=== PATIENT | male | born 1945 | race African-American/Black ===

== ENCOUNTER → 2021-09-24 | Day surgery (SDC) | payer OTHER ==
[2021-09-22 11:18] LABS: Basophils # (auto) 0 10 ^3/uL (0-0.2); Basophils % (auto) 0.3 % (0.0-2.0); Eosinophils # (auto) 0 10 ^3/uL (0-0.8); Eosinophils % (auto) 0.5 % (0.0-7.0); Hematocrit 45.7 % (41.0-53.0); Hemoglobin 15.3 g/dL (13.5-17.5); Lymphocytes # (auto) 3.1 10 ^3/uL (0.4-5.4); Lymphocytes % (auto) 29.6 % (10.0-50.0); Mean Corpuscular Hemoglobin 30.9 pg (28.0-32.0); Mean Corpuscular Hgb Conc. 33.4 g/dL (32.0-36.0); Mean Corpuscular Volume 92.4 fL (80.0-100.0); Monocytes # (auto) 1.2 10 ^3/uL (0-1.3); Monocytes % (auto) 11.6 % (0.0-12.0); Nucleated Red Blood Cells % 0.1 %; Red Blood Cells 4.95 10^6/uL (4.5-5.90); Red Cell Distribution Width 15.6 % (11.8-14.3); White Blood Cell 10.4 10^3/uL (4.4-10.8)
[2021-09-22 11:22] LABS: Potassium 4.1 mmol/L (3.5-5.1)
[2021-09-22 11:28] LABS: BUN/Creatinine Ratio 11.8; Bilirubin, Total 0.5 mg/dL (0.2-1.0); Calcium 9.2 mg/dL (8.5-10.1); Total Protein 7.5 g/dL (6.4-8.2)
[~2021-09-24] VITALS: Ht 175.3 cm; Wt 68.0 kg
[~2021-09-24] MED LIST: LACT10SO70 PO; LIDOCAINE VISCOUS 2% 15ML UD ONE; POLY33504 PO; diphenhdrAMINE HCL 50 MG/1 ML VL ONE; fentaNYL CITRATE 100 MCG/2 ML VL ONE
[2021-09-24] MEDS: MIDAZOLAM HCL 5 MG/ML-1ML VIAL ONE ×2 (15:46→15:52)
[2021-09-24 16:45] VITALS: BP 120/56
== END | disposition home or self-care (01) ==
LOC: GI 12:54
PROVIDERS: ATTEND Internal Medicine Gastroenterology
DX: R10.13 Epigastric pain (principal); K21.00 Gastro-esophageal reflux disease with esophagitis, without bleeding; K29.50 Unspecified chronic gastritis without bleeding; K31.89 Other diseases of stomach and duodenum; K22.10 Ulcer of esophagus without bleeding; K44.9 Diaphragmatic hernia without obstruction or gangrene; K29.80 Duodenitis without bleeding; F17.200 Nicotine dependence, unspecified, uncomplicated; Z20.822 Contact with and (suspected) exposure to COVID-19
CPT/HCPCS: 36415; 43239; 80053; 85025; 88305; 88342; J1200; J2250; J3010; J7030; U0003; 99152

== ENCOUNTER 2022-02-10 13:05 | Inpatient (IN) | payer OTHER ==
[~2022-02-10] VITALS: Ht 175.3 cm; Wt 65.5 kg
[~2022-02-10 13:05] MED LIST changes: +LEVE500T32 PO; -LIDOCAINE VISCOUS 2% 15ML UD ONE; -diphenhdrAMINE HCL 50 MG/1 ML VL ONE; -fentaNYL CITRATE 100 MCG/2 ML VL ONE
[2022-02-10] MEDS ORDERED: LORazepam 2MG/ML-1ML VIAL ONE ×2 (13:20→13:30)
[2022-02-10] MEDS ORDERED: ROCURONIUM 10MG/ML 10ML VIAL IV ONE ×2 (13:26→13:30)
[2022-02-10] MEDS ORDERED: ETOMIDATE (2MG/ML) 20ML VIAL IV ONE ×2 (13:26→13:30)
[2022-02-10] MEDS ORDERED: MIDAZOLAM HCL 2MG/2ML 2ml VIAL (1mg/ml) IV ONE (13:30)
[2022-02-10] MEDS ORDERED: SODIUM CHLORIDE 0.9% 500 ML IV ONE (13:30)
[2022-02-10] MEDS ORDERED: LORazepam 2MG/ML-1ML VIAL IM ONE (13:30)
[2022-02-10] MEDS ORDERED: MIDAZOLAM HCL 5 MG/ML-1ML VIAL ONE (13:30)
[2022-02-10] MEDS ORDERED: MIDAZOLAM DRIP 50 mg/50mL 50 ML IV ONE (13:30)
[2022-02-10] MEDS ORDERED: LORazepam 2MG/ML-1ML VIAL IV ONE (13:30)
[2022-02-10] MEDS ORDERED: PROPOFOL 100 ML IV ONE (13:32)
[2022-02-10] MEDS: PROPOFOL 100 ML IV SCH (13:36)
[2022-02-10 14:20] LABS: Basophils # (auto) 0.1 10 ^3/uL (0-0.2); Eosinophils # (auto) 0 10 ^3/uL (0-0.8); Eosinophils % (auto) 0.1 % (0.0-7.0); Hematocrit 49.7 % (41.0-53.0); Hemoglobin 16.3 g/dL (13.5-17.5); Lymphocytes # (auto) 2.1 10 ^3/uL (0.4-5.4); Lymphocytes % (auto) 15.2 % (10.0-50.0); Mean Corpuscular Hemoglobin 31.8 pg (28.0-32.0); Mean Corpuscular Hgb Conc. 32.7 g/dL (32.0-36.0); Mean Corpuscular Volume 97.2 fL (80.0-100.0); Monocytes # (auto) 1.1 10 ^3/uL (0-1.3); Neutrophils # (auto) 10.3 10 ^3/uL (1.6-8.6); Neutrophils % (auto) 75.7 % (37.0-80.0); Nucleated Red Blood Cells % 0.1 %; Red Blood Cells 5.12 10^6/uL (4.5-5.90); Red Cell Distribution Width 15.6 % (11.8-14.3); White Blood Cell 13.6 10^3/uL (4.4-10.8)
[2022-02-10 15:03] LABS: Lactic Acid w/Reflex 13.7 mmol/L (0.4-2.0)
[2022-02-10] MEDS ORDERED: SODIUM CHLORIDE 0.9% 2,050 ML IV ONE (15:15)
[2022-02-10] MEDS: NOREPINEPHRINE 8 MG/250ML KIT 250 ML IV SCH (15:15)
[2022-02-10] MEDS ORDERED: NITROGLYCERIN 0.4 MG SL TAB SL PRN (15:15)
[2022-02-10] MEDS ORDERED: MORPHINE SULFATE INJ 2 MG/ml SYRG IV PRN (15:15)
[2022-02-10] MEDS ORDERED: VANCOMYCIN PER PHARMACY 1,000 MG IV SCH (15:15)
[2022-02-10 15:27] LABS: Urine Bacteria NONE SEEN /hpf (None Seen); Urine Blood 1+ /uL (Negative); Urine Hyaline Cast FEW /lpf (0 - 2); Urine Specific Gravity 1.015 (1.001-1.035); Urine WBC 4 /hpf (0 - 3)
[2022-02-10 15:29] LABS: Alanine Aminotransferase 18 U/L (16-61); Alkaline Phosphatase 62 U/L (45-117); Anion Gap 25 (5-15); Aspartate Aminotransferase 29 U/L (15-37); BUN/Creatinine Ratio 10.3; Bilirubin, Total 0.5 mg/dL (0.2-1.0); Blood Urea Nitrogen 12 mg/dL (7-18); Carbon Dioxide 11 mmol/L (21-32); Chloride 100 mmol/L (98-107); GFR African American 78 mL/min; GFR Non-African American 65 mL/min; Glucose 210 mg/dL (74-106); Potassium 3.6 mmol/L (3.5-5.1); Sodium 136 mmol/L (136-145); Total Protein 7.8 g/dL (6.4-8.2)
[2022-02-10 15:30] LABS: Albumin 3.7 g/dL (3.4-5.0)
[2022-02-10] MEDS ORDERED: VANCOMYCIN 1GM/250ML 250 ML IV ONE (15:30)
[2022-02-10 15:38] LABS: Alcohol, Urine < 3.0 mg/dL (0-10); Amphetamine Screen, Urine NEGATIVE (NEGATIVE); Barbiturate Scree,Urine NEGATIVE (NEGATIVE); Benzodiazephine Screen, Urine POSITIVE (NEGATIVE); Cannabinoid Screen, Urine POSITIVE (NEGATIVE); Cocaine Screen, Urine NEGATIVE (NEGATIVE); Phencyclidine Screen, Urine NEGATIVE (NEGATIVE)
[2022-02-10 15:45] VITALS: BP 117/84
[2022-02-10 15:45] LABS: Opiate Scree,Urine NEGATIVE (NEGATIVE)
[2022-02-10 16:25] LABS: Partial Thromboplastin Time 24.6 sec (23.6-33.0)
[2022-02-10] MEDS: MIDAZOLAM DRIP 50 mg/50mL 50 ML IV SCH (16:32)
[2022-02-10] MEDS ORDERED: LACTULOSE 20Gm/30ML SOLN PO SCH (18:00)
[2022-02-10] MEDS ORDERED: PANTOPRAZOLE 40 MG/10 ML VIAL INJ IV ONE (18:00)
[2022-02-10 18:06] VITALS: BP 117/78
[2022-02-10] MEDS: PIPERACILLIN-TAZOB 3.375GM 100 ML IV SCH (18:29)
[2022-02-10] MEDS ORDERED: IOHEXOL 350 MG/ML 100ML IJ ONE ×2 (18:33→21:41)
[2022-02-10 19:24] LABS: Magnesium 2.8 mg/dL (1.6-2.6); Phosphorus 2.8 mg/dL (2.5-4.90)
[2022-02-10 19:50] VITALS: BP 109/74
[2022-02-10 19:59] LABS: INR 0.97 (0.9-1.15); Partial Thromboplastin Time 21.9 sec (23.6-33.0)
[2022-02-10 21:17] VITALS: BP 105/73
[2022-02-10 22:15] VITALS: BP 97/71
[2022-02-11] VITALS (81 sets, daily range): BP systolic 85–168; BP diastolic 30–99
[2022-02-11] MEDS: PIPERACILLIN-TAZOB 3.375GM 100 ML IV SCH ×4 (01:00→18:43)
[2022-02-11] MEDS: LACTULOSE 20Gm/30ML SOLN GT SCH ×7 (02:00→22:07)
[2022-02-11] MEDS: MIDAZOLAM DRIP 50 mg/50mL 50 ML IV SCH ×5 (07:26→22:42)
[2022-02-11] MEDS: VANCOMYCIN 1GM/250ML 250 ML IV SCH (09:58)
[2022-02-11] MEDS: PANTOPRAZOLE 40 MG/10 ML VIAL INJ IV SCH (09:58)
[2022-02-11] MEDS ORDERED: ENOXAPARIN SOD 40 MG/0.4 ML SYRINGE SC SCH (10:00)
[2022-02-11 10:18] LABS: Basophils # (auto) 0.1 10 ^3/uL (0-0.2); Basophils % (auto) 0.5 % (0.0-2.0); Eosinophils # (auto) 0 10 ^3/uL (0-0.8); Eosinophils % (auto) 0.2 % (0.0-7.0); Hemoglobin 14.4 g/dL (13.5-17.5); Lymphocytes # (auto) 1.6 10 ^3/uL (0.4-5.4); Lymphocytes % (auto) 12.7 % (10.0-50.0); Mean Corpuscular Hemoglobin 31.7 pg (28.0-32.0); Mean Corpuscular Hgb Conc. 33.5 g/dL (32.0-36.0); Mean Corpuscular Volume 94.5 fL (80.0-100.0); Monocytes # (auto) 1.4 10 ^3/uL (0-1.3); Monocytes % (auto) 11.3 % (0.0-12.0); Neutrophils # (auto) 9.3 10 ^3/uL (1.6-8.6); Neutrophils % (auto) 75.3 % (37.0-80.0); Nucleated Red Blood Cells % 0.1 %; Red Blood Cells 4.55 10^6/uL (4.5-5.90); Red Cell Distribution Width 15.3 % (11.8-14.3); White Blood Cell 12.3 10^3/uL (4.4-10.8)
[2022-02-11 10:35] LABS: INR 1.04 (0.9-1.15); Partial Thromboplastin Time 28.3 sec (23.6-33.0)
[2022-02-11 10:37] LABS: Albumin 2.9 g/dL (3.4-5.0); Calcium 8.4 mg/dL (8.5-10.1); Magnesium 2.7 mg/dL (1.6-2.6); Potassium 3.1 mmol/L (3.5-5.1); Uric Acid 3.8 mg/dL (3.5-7.2)
[2022-02-11 10:47] LABS: BUN/Creatinine Ratio 8.4; Bilirubin, Total 0.7 mg/dL (0.2-1.0); CRP High Sensitivity 4.39 mg/dL (< 0.3); Phosphorus 2.8 mg/dL (2.5-4.90)
[2022-02-11] MEDS ORDERED: ENOXAPARIN SOD 30 MG/0.3 ML SYRINGE SC ONE (12:45)
[2022-02-11] MEDS: SOD CHL 0.9%/ KCL 40MEQ 1,000 ML IV SCH ×2 (13:01→21:15)
[2022-02-11] MEDS: PROPOFOL 100 ML IV SCH ×3 (13:30→22:42)
[2022-02-11 13:36] LABS: Lactic Acid w/Reflex 2.2 mmol/L (0.4-2.0)
[2022-02-11] MEDS: NOREPINEPHRINE 8 MG/250ML KIT 250 ML IV SCH (15:15)
[2022-02-11] MEDS ORDERED: LORazepam 2MG/ML-1ML VIAL IV PRN (19:15)
[2022-02-11] MEDS ORDERED: ENOXAPARIN SOD 100 MG/1 ML SYRINGE SC SCH (22:00)
[2022-02-11] MEDS: ENOXAPARIN SOD 80 MG/0.8ML SYRINGE SC SCH (22:08)
[2022-02-12] VITALS (106 sets, daily range): BP systolic 93–150; BP diastolic 41–77
[2022-02-12] MEDS: PIPERACILLIN-TAZOB 3.375GM 100 ML IV SCH ×5 (00:02→23:32)
[2022-02-12] MEDS: LACTULOSE 20Gm/30ML SOLN GT SCH ×3 (01:37→09:57)
[2022-02-12] MEDS: MIDAZOLAM DRIP 50 mg/50mL 50 ML IV SCH ×6 (01:53→23:07)
[2022-02-12] MEDS: VANCOMYCIN 1GM/250ML 250 ML IV SCH ×2 (03:59→22:24)
[2022-02-12 04:16] LABS: Basophils # (auto) 0.2 10 ^3/uL (0-0.2); Eosinophils # (auto) 0 10 ^3/uL (0-0.8); Eosinophils % (auto) 0.1 % (0.0-7.0); Hematocrit 41.3 % (41.0-53.0); Lymphocytes # (auto) 1.9 10 ^3/uL (0.4-5.4); Lymphocytes % (auto) 11.7 % (10.0-50.0); Mean Corpuscular Hemoglobin 31.6 pg (28.0-32.0); Mean Corpuscular Hgb Conc. 33.8 g/dL (32.0-36.0); Mean Corpuscular Volume 93.5 fL (80.0-100.0); Monocytes # (auto) 1.7 10 ^3/uL (0-1.3); Monocytes % (auto) 10.2 % (0.0-12.0); Neutrophils # (auto) 12.6 10 ^3/uL (1.6-8.6); Red Blood Cells 4.42 10^6/uL (4.5-5.90); Red Cell Distribution Width 15.5 % (11.8-14.3); White Blood Cell 16.4 10^3/uL (4.4-10.8)
[2022-02-12 04:37] LABS: Potassium 3.8 mmol/L (3.5-5.1)
[2022-02-12 04:39] LABS: BUN/Creatinine Ratio 7.3; Calcium 8.7 mg/dL (8.5-10.1)
[2022-02-12] MEDS: PROPOFOL 100 ML IV SCH ×4 (05:00→21:15)
[2022-02-12] MEDS: SOD CHL 0.9%/ KCL 40MEQ 1,000 ML IV SCH (06:09)
[2022-02-12] MEDS: PANTOPRAZOLE 40 MG/10 ML VIAL INJ IV SCH (09:48)
[2022-02-12] MEDS: ENOXAPARIN SOD 80 MG/0.8ML SYRINGE SC SCH ×2 (09:50→22:24)
[2022-02-12] MEDS: FOLIC ACID 1 MG, MULTIPLE VITAMIN 10 ML, MAGNESIUM SULF SDV 50% 8 MEQ, THIAMINE INJ 100... INJ SCH ×5 (11:45)
[2022-02-12] MEDS: NOREPINEPHRINE 8 MG/250ML KIT 250 ML IV SCH (15:15)
[2022-02-13] VITALS (91 sets, daily range): BP systolic 108–158; BP diastolic 55–89
[2022-02-13] MEDS: MIDAZOLAM DRIP 50 mg/50mL 50 ML IV SCH (03:18)
[2022-02-13 04:32] LABS: Basophils # (auto) 0 10 ^3/uL (0-0.2); Basophils % (auto) 0.3 % (0.0-2.0); Eosinophils # (auto) 0.1 10 ^3/uL (0-0.8); Eosinophils % (auto) 0.6 % (0.0-7.0); Hematocrit 38.8 % (41.0-53.0); Hemoglobin 13.4 g/dL (13.5-17.5); Lymphocytes # (auto) 1.8 10 ^3/uL (0.4-5.4); Lymphocytes % (auto) 13.4 % (10.0-50.0); Mean Corpuscular Hgb Conc. 34.5 g/dL (32.0-36.0); Mean Corpuscular Volume 92.5 fL (80.0-100.0); Monocytes # (auto) 1.4 10 ^3/uL (0-1.3); Monocytes % (auto) 10.6 % (0.0-12.0); Neutrophils % (auto) 75.1 % (37.0-80.0); Red Blood Cells 4.19 10^6/uL (4.5-5.90); Red Cell Distribution Width 15.3 % (11.8-14.3); White Blood Cell 13.3 10^3/uL (4.4-10.8)
[2022-02-13] MEDS: PIPERACILLIN-TAZOB 3.375GM 100 ML IV SCH ×3 (05:26→18:00)
[2022-02-13] MEDS: PANTOPRAZOLE 40 MG/10 ML VIAL INJ IV SCH (10:12)
[2022-02-13] MEDS: ENOXAPARIN SOD 80 MG/0.8ML SYRINGE SC SCH ×2 (10:13→21:53)
[2022-02-13 10:26] LABS: BUN/Creatinine Ratio 10.8; Calcium 8.2 mg/dL (8.5-10.1); Potassium 3.3 mmol/L (3.5-5.1)
[2022-02-13] MEDS: FOLIC ACID 1 MG, MULTIPLE VITAMIN 10 ML, MAGNESIUM SULF SDV 50% 8 MEQ, THIAMINE INJ 100... INJ SCH ×5 (10:57)
[2022-02-13] MEDS: NOREPINEPHRINE 8 MG/250ML KIT 250 ML IV SCH (12:40)
[2022-02-13] MEDS ORDERED: hydrALAZINE HCL 20 MG/ML VL IV PRN (13:00)
[2022-02-13 14:05] LABS: INR 0.99 (0.9-1.15); Partial Thromboplastin Time 45.3 sec (23.6-33.0)
[2022-02-13] MEDS: PROPOFOL 100 ML IV SCH (20:30)
[2022-02-14] VITALS (102 sets, daily range): BP systolic 81–174; BP diastolic 30–78
[2022-02-14] MEDS: PIPERACILLIN-TAZOB 3.375GM 100 ML IV SCH ×5 (00:25→23:49)
[2022-02-14] MEDS: PROPOFOL 100 ML IV SCH (03:41)
[2022-02-14 04:03] LABS: Basophils # (auto) 0.1 10 ^3/uL (0-0.2); Basophils % (auto) 0.5 % (0.0-2.0); Eosinophils # (auto) 0 10 ^3/uL (0-0.8); Eosinophils % (auto) 0.3 % (0.0-7.0); Hemoglobin 13.9 g/dL (13.5-17.5); Lymphocytes % (auto) 16.3 % (10.0-50.0); Mean Corpuscular Hemoglobin 31.3 pg (28.0-32.0); Mean Corpuscular Volume 94.8 fL (80.0-100.0); Monocytes # (auto) 1.9 10 ^3/uL (0-1.3); Monocytes % (auto) 15.4 % (0.0-12.0); Neutrophils # (auto) 8.2 10 ^3/uL (1.6-8.6); Neutrophils % (auto) 67.5 % (37.0-80.0); Red Blood Cells 4.43 10^6/uL (4.5-5.90); Red Cell Distribution Width 15.5 % (11.8-14.3); White Blood Cell 12.1 10^3/uL (4.4-10.8)
[2022-02-14 04:36] LABS: BUN/Creatinine Ratio 12.2; Calcium 8.5 mg/dL (8.5-10.1); Potassium 3.5 mmol/L (3.5-5.1)
[2022-02-14] MEDS: MIDAZOLAM DRIP 50 mg/50mL 50 ML IV SCH (09:29)
[2022-02-14] MEDS: ENOXAPARIN SOD 80 MG/0.8ML SYRINGE SC SCH ×2 (09:29→22:28)
[2022-02-14] MEDS: PANTOPRAZOLE 40 MG/10 ML VIAL INJ IV SCH (09:29)
[2022-02-14] MEDS: NOREPINEPHRINE 8 MG/250ML KIT 250 ML IV SCH (09:30)
[2022-02-14] MEDS: FOLIC ACID 1 MG, MULTIPLE VITAMIN 10 ML, MAGNESIUM SULF SDV 50% 8 MEQ, THIAMINE INJ 100... INJ SCH ×5 (11:46)
[2022-02-14] MEDS ORDERED: MAGN400T40 PO (13:23)
[2022-02-14] MEDS ORDERED: PANT40TA2 PO (13:23)
[2022-02-14] MEDS ORDERED: DexmedeTOMIDine 4 ML IV ONE (20:45)
[2022-02-15] VITALS (69 sets, daily range): BP systolic 86–175; BP diastolic 43–116
[2022-02-15 04:21] LABS: Basophils # (auto) 0.1 10 ^3/uL (0-0.2); Basophils % (auto) 1.4 % (0.0-2.0); Eosinophils # (auto) 0 10 ^3/uL (0-0.8); Eosinophils % (auto) 0.4 % (0.0-7.0); Hematocrit 38.2 % (41.0-53.0); Hemoglobin 13.2 g/dL (13.5-17.5); Lymphocytes # (auto) 1.9 10 ^3/uL (0.4-5.4); Lymphocytes % (auto) 21.4 % (10.0-50.0); Mean Corpuscular Hemoglobin 32.2 pg (28.0-32.0); Mean Corpuscular Hgb Conc. 34.7 g/dL (32.0-36.0); Mean Corpuscular Volume 92.8 fL (80.0-100.0); Monocytes % (auto) 11.7 % (0.0-12.0); Neutrophils # (auto) 5.8 10 ^3/uL (1.6-8.6); Neutrophils % (auto) 65.1 % (37.0-80.0); Nucleated Red Blood Cells % 0.1 %; Red Blood Cells 4.11 10^6/uL (4.5-5.90); Red Cell Distribution Width 15.5 % (11.8-14.3); White Blood Cell 8.9 10^3/uL (4.4-10.8)
[2022-02-15 04:29] LABS: Potassium 3.2 mmol/L (3.5-5.1)
[2022-02-15 04:34] LABS: BUN/Creatinine Ratio 15.8; Calcium 8.8 mg/dL (8.5-10.1); Magnesium 2.4 mg/dL (1.6-2.6)
[2022-02-15] MEDS: PIPERACILLIN-TAZOB 3.375GM 100 ML IV SCH ×4 (05:42→23:39)
[2022-02-15] MEDS: PANTOPRAZOLE 40 MG/10 ML VIAL INJ IV SCH (09:39)
[2022-02-15] MEDS: ENOXAPARIN SOD 80 MG/0.8ML SYRINGE SC SCH ×2 (09:40→21:32)
[2022-02-15] MEDS: FOLIC ACID 1 MG, MULTIPLE VITAMIN 10 ML, MAGNESIUM SULF SDV 50% 8 MEQ, THIAMINE INJ 100... INJ SCH ×5 (11:36)
[2022-02-15] MEDS: MIDAZOLAM DRIP 50 mg/50mL 50 ML IV SCH (12:58)
[2022-02-15] MEDS: PROPOFOL 100 ML IV SCH (12:58)
[2022-02-15] MEDS: POTASSIUM CHL 20MEQ/100ML 100 ML IV SCH ×2 (12:58→14:46)
[2022-02-15] MEDS: NOREPINEPHRINE 8 MG/250ML KIT 250 ML IV SCH (12:59)
[2022-02-15] MEDS: ACETAMINOPHEN 650 mg PER 20.3 mL UD GT PRN ×2 (15:04→21:32)
[2022-02-16] VITALS (35 sets, daily range): BP systolic 108–173; BP diastolic 52–83
[2022-02-16] MEDS: MORPHINE SULFATE 4 MG/ML SYR/VIAL IV PRN ×5 (03:25→22:06)
[2022-02-16 03:51] LABS: Basophils # (auto) 0 10 ^3/uL (0-0.2); Basophils % (auto) 0.4 % (0.0-2.0); Eosinophils # (auto) 0.1 10 ^3/uL (0-0.8); Eosinophils % (auto) 0.7 % (0.0-7.0); Hematocrit 34.5 % (41.0-53.0); Hemoglobin 11.6 g/dL (13.5-17.5); Lymphocytes # (auto) 2.3 10 ^3/uL (0.4-5.4); Lymphocytes % (auto) 25.8 % (10.0-50.0); Mean Corpuscular Hemoglobin 31.4 pg (28.0-32.0); Mean Corpuscular Hgb Conc. 33.6 g/dL (32.0-36.0); Mean Corpuscular Volume 93.6 fL (80.0-100.0); Monocytes # (auto) 1.4 10 ^3/uL (0-1.3); Monocytes % (auto) 15.4 % (0.0-12.0); Neutrophils # (auto) 5.1 10 ^3/uL (1.6-8.6); Neutrophils % (auto) 57.7 % (37.0-80.0); Nucleated Red Blood Cells % 0.2 %; Red Blood Cells 3.69 10^6/uL (4.5-5.90); Red Cell Distribution Width 15.6 % (11.8-14.3); White Blood Cell 8.8 10^3/uL (4.4-10.8)
[2022-02-16 04:01] LABS: BUN/Creatinine Ratio 15.1; Calcium 8.7 mg/dL (8.5-10.1); Magnesium 2.4 mg/dL (1.6-2.6); Potassium 3.3 mmol/L (3.5-5.1)
[2022-02-16] MEDS: PIPERACILLIN-TAZOB 3.375GM 100 ML IV SCH ×3 (06:00→18:02)
[2022-02-16] MEDS: ACETAMINOPHEN 650 mg PER 20.3 mL UD GT PRN (09:27)
[2022-02-16] MEDS: PANTOPRAZOLE 40 MG/10 ML VIAL INJ IV SCH (09:34)
[2022-02-16] MEDS: ENOXAPARIN SOD 80 MG/0.8ML SYRINGE SC SCH ×2 (10:00→22:05)
[2022-02-16] MEDS: POTASSIUM CHL 20MEQ/100ML 100 ML IV SCH ×2 (11:30→13:30)
[2022-02-16] MEDS: FOLIC ACID 1 MG, MULTIPLE VITAMIN 10 ML, MAGNESIUM SULF SDV 50% 8 MEQ, THIAMINE INJ 100... INJ SCH ×5 (12:08)
[2022-02-16] MEDS ORDERED: ONDANSETRON HCL 4 MG/2 ML VIAL IV PRN (12:45)
[2022-02-16] MEDS: MIDAZOLAM DRIP 50 mg/50mL 50 ML IV SCH (13:30)
[2022-02-16] MEDS: PROPOFOL 100 ML IV SCH (13:30)
[2022-02-16] MEDS: NOREPINEPHRINE 8 MG/250ML KIT 250 ML IV SCH (15:15)
[2022-02-17] VITALS (23 sets, daily range): BP systolic 96–156; BP diastolic 47–86
[2022-02-17] MEDS: PIPERACILLIN-TAZOB 3.375GM 100 ML IV SCH ×4 (00:29→19:05)
[2022-02-17 04:23] LABS: Basophils # (auto) 0 10 ^3/uL (0-0.2); Basophils % (auto) 0.5 % (0.0-2.0); Eosinophils # (auto) 0.1 10 ^3/uL (0-0.8); Eosinophils % (auto) 0.8 % (0.0-7.0); Hematocrit 34.8 % (41.0-53.0); Hemoglobin 11.6 g/dL (13.5-17.5); Lymphocytes # (auto) 1.9 10 ^3/uL (0.4-5.4); Lymphocytes % (auto) 20.1 % (10.0-50.0); Mean Corpuscular Hemoglobin 31.4 pg (28.0-32.0); Mean Corpuscular Hgb Conc. 33.4 g/dL (32.0-36.0); Monocytes # (auto) 1.2 10 ^3/uL (0-1.3); Monocytes % (auto) 13.3 % (0.0-12.0); Neutrophils # (auto) 6.1 10 ^3/uL (1.6-8.6); Neutrophils % (auto) 65.3 % (37.0-80.0); Red Cell Distribution Width 15.3 % (11.8-14.3); White Blood Cell 9.3 10^3/uL (4.4-10.8)
[2022-02-17 04:39] LABS: Calcium 8.9 mg/dL (8.5-10.1); Potassium 3.4 mmol/L (3.5-5.1)
[2022-02-17] MEDS: PANTOPRAZOLE 40 MG/10 ML VIAL INJ IV SCH (10:10)
[2022-02-17] MEDS: ENOXAPARIN SOD 80 MG/0.8ML SYRINGE SC SCH ×2 (10:10→22:00)
[2022-02-17] MEDS ORDERED: POLYETHYLENE GLYCOL 17 GM PWDR PO ONE (10:15)
[2022-02-17] MEDS ORDERED: POTASSIUM CHL 20MEQ/100ML 100 ML IV ONE (11:00)
[2022-02-17] MEDS: FOLIC ACID 1 MG, MULTIPLE VITAMIN 10 ML, MAGNESIUM SULF SDV 50% 8 MEQ, THIAMINE INJ 100... INJ SCH ×5 (13:01)
[2022-02-17] MEDS: MIDAZOLAM DRIP 50 mg/50mL 50 ML IV SCH (13:30)
[2022-02-17] MEDS: PROPOFOL 100 ML IV SCH (13:30)
[2022-02-17] MEDS: NOREPINEPHRINE 8 MG/250ML KIT 250 ML IV SCH (15:15)
[2022-02-17] MEDS: LORazepam 2MG/ML-1ML VIAL IV PRN (22:41)
[2022-02-18] VITALS: BP 129/65
[2022-02-18 01:00] VITALS: BP 133/61
[2022-02-18] MEDS: PIPERACILLIN-TAZOB 3.375GM 100 ML IV SCH ×4 (01:00→17:56)
[2022-02-18] MEDS ORDERED: dilTIAZem 25 MG/5 ML VIAL IV ONE (06:00)
[2022-02-18 06:37] LABS: Anion Gap 7 (5-15); BUN/Creatinine Ratio 9.5; Blood Urea Nitrogen 6 mg/dL (7-18); Calcium 8.4 mg/dL (8.5-10.1); Carbon Dioxide 24 mmol/L (21-32); Chloride 109 mmol/L (98-107); GFR African American 160 mL/min; GFR Non-African American 132 mL/min; Glucose 101 mg/dL (74-106); Potassium 3.2 mmol/L (3.5-5.1); Sodium 140 mmol/L (136-145)
[2022-02-18 07:42] LABS: Basophils # (auto) 0.1 10 ^3/uL (0-0.2); Basophils % (auto) 0.6 % (0.0-2.0); Eosinophils # (auto) 0.1 10 ^3/uL (0-0.8); Eosinophils % (auto) 0.6 % (0.0-7.0); Hematocrit 35.8 % (41.0-53.0); Hemoglobin 12.1 g/dL (13.5-17.5); Lymphocytes # (auto) 1.8 10 ^3/uL (0.4-5.4); Lymphocytes % (auto) 19.8 % (10.0-50.0); Mean Corpuscular Hgb Conc. 33.8 g/dL (32.0-36.0); Mean Corpuscular Volume 91.6 fL (80.0-100.0); Monocytes # (auto) 1.1 10 ^3/uL (0-1.3); Monocytes % (auto) 12.7 % (0.0-12.0); Neutrophils % (auto) 66.3 % (37.0-80.0); Nucleated Red Blood Cells % 0.1 %; Red Blood Cells 3.91 10^6/uL (4.5-5.90); Red Cell Distribution Width 15.2 % (11.8-14.3)
[2022-02-18 09:00] VITALS: BP 146/81
[2022-02-18] MEDS: ENOXAPARIN SOD 80 MG/0.8ML SYRINGE SC SCH ×2 (09:48→10:48)
[2022-02-18] MEDS: PANTOPRAZOLE 40 MG/10 ML VIAL INJ IV SCH (09:50)
[2022-02-18] MEDS: POTASSIUM CHL 20MEQ/100ML 100 ML IV SCH ×2 (10:58→14:16)
[2022-02-18] MEDS: FOLIC ACID 1 MG, MULTIPLE VITAMIN 10 ML, MAGNESIUM SULF SDV 50% 8 MEQ, THIAMINE INJ 100... INJ SCH ×5 (12:00)
[2022-02-18 13:00] VITALS: BP 97/61
[2022-02-18 17:00] VITALS: BP 78/49
[2022-02-18] MEDS: LORazepam 2MG/ML-1ML VIAL IV PRN (21:59)
[2022-02-18 22:00] VITALS: BP 147/68
[2022-02-19 05:00] VITALS: BP 125/56
[2022-02-19 05:55] LABS: Basophils # (auto) 0.1 10 ^3/uL (0-0.2); Basophils % (auto) 0.7 % (0.0-2.0); Eosinophils # (auto) 0.1 10 ^3/uL (0-0.8); Eosinophils % (auto) 1.6 % (0.0-7.0); Hematocrit 37.9 % (41.0-53.0); Hemoglobin 12.5 g/dL (13.5-17.5); Lymphocytes # (auto) 2.5 10 ^3/uL (0.4-5.4); Lymphocytes % (auto) 29.3 % (10.0-50.0); Mean Corpuscular Hemoglobin 30.9 pg (28.0-32.0); Mean Corpuscular Hgb Conc. 32.9 g/dL (32.0-36.0); Monocytes # (auto) 1.2 10 ^3/uL (0-1.3); Monocytes % (auto) 14.1 % (0.0-12.0); Neutrophils # (auto) 4.7 10 ^3/uL (1.6-8.6); Neutrophils % (auto) 54.3 % (37.0-80.0); Red Blood Cells 4.03 10^6/uL (4.5-5.90); Red Cell Distribution Width 15.2 % (11.8-14.3); White Blood Cell 8.7 10^3/uL (4.4-10.8)
[2022-02-19 06:12] LABS: Calcium 8.8 mg/dL (8.5-10.1); Potassium 3.3 mmol/L (3.5-5.1)
[2022-02-19] MEDS: PIPERACILLIN-TAZOB 3.375GM 100 ML IV SCH ×4 (06:31→16:51)
[2022-02-19 08:44] VITALS: BP 140/79
[2022-02-19] MEDS: ENOXAPARIN SOD 80 MG/0.8ML SYRINGE SC SCH (09:05)
[2022-02-19] MEDS: PANTOPRAZOLE 40 MG/10 ML VIAL INJ IV SCH (09:05)
[2022-02-19] MEDS ORDERED: APIX5TAB PO (10:47)
[2022-02-19] MEDS ORDERED: POTASSIUM EFFERVESENT TAB 25 MEQ GT ONE (11:00)
[2022-02-19] MEDS: FOLIC ACID 1 MG, MULTIPLE VITAMIN 10 ML, MAGNESIUM SULF SDV 50% 8 MEQ, THIAMINE INJ 100... INJ SCH ×5 (12:00)
[2022-02-19 12:57] VITALS: BP 97/66
[2022-02-19] MEDS ORDERED: ALBU1AER4 IN (15:27)
[2022-02-19 15:57] VITALS: BP 97/66
[2022-02-19 16:49] VITALS: BP 131/67
[2022-02-19] MEDS ORDERED: PANTOPRAZOLE 40 MG/10 ML VIAL INJ IV SCH (22:00)
== END 2022-02-19 19:09 | disposition home health service (06) | DRG 870 ==
LOC: ER 13:05 → EDBD 13:05 → TELE 15:13 → ICU WEST 02-11 05:25 → TELE-WESTW 02-18 02:12
PROVIDERS: ADMIT Hospitalist; ATTEND Internal Medicine Pulmonary Disease
PROC: 0BH17EZ Insertion of Endotracheal Airway into Trachea, Via Natural or Artificial Opening (ICD-10-PCS; 2022-02-10)
PROC: 5A1955Z Respiratory Ventilation, Greater than 96 Consecutive Hours (ICD-10-PCS; 2022-02-10)
PROC: 05H933Z Insertion of Infusion Device into Right Brachial Vein, Percutaneous Approach (ICD-10-PCS; principal; 2022-02-11)
PROC: B54MZZA Ultrasonography of Right Upper Extremity Veins, Guidance (ICD-10-PCS; 2022-02-11)
DX: A41.9 Sepsis, unspecified organism (principal); G93.41 Metabolic encephalopathy; J69.0 Pneumonitis due to inhalation of food and vomit; J96.01 Acute respiratory failure with hypoxia; I26.93 Single subsegmental thrombotic pulmonary embolism without acute cor pulmonale; E43 Unspecified severe protein-calorie malnutrition; E87.2 Acidosis; I50.30 Unspecified diastolic (congestive) heart failure; N17.9 Acute kidney failure, unspecified; F10.239 Alcohol dependence with withdrawal, unspecified; R65.20 Severe sepsis without septic shock; B96.1 Klebsiella pneumoniae [K. pneumoniae] as the cause of diseases classified elsewhere; F17.210 Nicotine dependence, cigarettes, uncomplicated; G40.401 Other generalized epilepsy and epileptic syndromes, not intractable, with status epilepticus; I11.0 Hypertensive heart disease with heart failure; J43.9 Emphysema, unspecified; Z93.0 Tracheostomy status; Z68.22 Body mass index [BMI] 22.0-22.9, adult
CPT/HCPCS: 31500; 36415; 36600; 51702; 70450; 71045; 71250; 71275; 74176; 80048; 80053; 80061; 80202; 80307; 81001; 82140; 82270; 82542; 82550; 82553; 82728; 82805; 83036; 83605; 83615; 83690; 83735; 83880; 84100; 84146; 84154; 84439; 84443; 84484; 84550; 85025; 85379; 85610; 85652; 85730; 86141; 86850; 86900; 86901; 87040; 87070; 87077; 87081; 87086; 87186; 87205; 87493; 93005; 93306; 93970; 94002; 94003; 94640; 95819; 96372; 96374; 96375; 97110; 97116; 97163; 97530; 99291; C9113; G0378; J2250; J2405; J2543; J2704; J3480; J7060

== ENCOUNTER 2022-09-20 08:45 | Emergency (ER) | payer OTHER ==
[~2022-09-20] VITALS: Ht 170.2 cm; Wt 68.0 kg
[~2022-09-20 08:45] MED LIST changes: +ALBU1AER4 IN; +APIX5TAB PO; -LEVE500T32 PO; +MAGN400T40 PO; +PANT40TA2 PO
[2022-09-20] MEDS ORDERED: LORazepam 2MG/ML-1ML VIAL ONE (09:03)
[2022-09-20] MEDS: LORazepam 2MG/ML-1ML VIAL IM ONE ×2 (09:03→09:07)
[2022-09-20] MEDS ORDERED: LORazepam 2MG/ML-1ML VIAL IV ONE (09:15)
[2022-09-20] MEDS ORDERED: SODIUM CHLORIDE 0.9% 1,000 ML IV ONE ×3 (11:00→14:45)
[2022-09-20 11:39] LABS: Basophils # (auto) 0 10 ^3/uL (0-0.2); Basophils % (auto) 0.1 % (0.0-2.0); Eosinophils # (auto) 0 10 ^3/uL (0-0.8); Hematocrit 46.1 % (41.0-53.0); Lymphocytes # (auto) 1.2 10 ^3/uL (0.4-5.4); Lymphocytes % (auto) 10.7 % (10.0-50.0); Mean Corpuscular Hemoglobin 29.2 pg (28.0-32.0); Mean Corpuscular Hgb Conc. 32.6 g/dL (32.0-36.0); Mean Corpuscular Volume 89.6 fL (80.0-100.0); Monocytes # (auto) 1.5 10 ^3/uL (0-1.3); Neutrophils # (auto) 8.6 10 ^3/uL (1.6-8.6); Neutrophils % (auto) 76.2 % (37.0-80.0); Red Blood Cells 5.14 10^6/uL (4.5-5.90); Red Cell Distribution Width 16.7 % (11.8-14.3); White Blood Cell 11.3 10^3/uL (4.4-10.8)
[2022-09-20 12:15] LABS: Albumin 3.8 g/dL (3.4-5.0); Calcium 9.2 mg/dL (8.5-10.1); Potassium 3.3 mmol/L (3.5-5.1)
[2022-09-20 12:18] LABS: BUN/Creatinine Ratio 5.6; Bilirubin, Total 0.5 mg/dL (0.2-1.0); Total Protein 6.9 g/dL (6.4-8.2)
[2022-09-20 14:44] LABS: Urine Bacteria None Seen /hpf (None Seen); Urine WBC None Seen /hpf (0 - 3)
[2022-09-20 15:30] LABS: Alcohol, Urine < 3.0 mg/dL (0-10); Amphetamine Screen, Urine NEGATIVE (NEGATIVE); Barbiturate Scree,Urine NEGATIVE (NEGATIVE); Benzodiazephine Screen, Urine NEGATIVE (NEGATIVE); Cannabinoid Screen, Urine POSITIVE (NEGATIVE); Cocaine Screen, Urine NEGATIVE (NEGATIVE); Opiate Scree,Urine NEGATIVE (NEGATIVE); Phencyclidine Screen, Urine NEGATIVE (NEGATIVE)
[2022-09-20 16:57] LABS: Urine Blood Trace /uL (Negative); Urine Specific Gravity 1.005 (1.001-1.035)
[2022-09-20 17:00] VITALS: BP 122/83
== END 2022-09-20 20:12 | disposition home or self-care (01) ==
LOC: EDBD 08:45 → ER 08:45
DX: R41.82 Altered mental status, unspecified (principal); G40.919 Epilepsy, unspecified, intractable, without status epilepticus
CPT/HCPCS: 36415; 70450; 71045; 80053; 80307; 81001; 83605; 83735; 83880; 84484; 85025; 93005; 96361; 96365; 96372; 99285; J1953; J2060; J7030; J7060

== ENCOUNTER 2023-02-15 10:57 | Inpatient (IN) | payer OTHER ==
[~2023-02-15] VITALS: Ht 170.2 cm; Wt 64.5 kg
[2023-02-15 11:33] LABS: Basophils # (auto) 0 10 ^3/uL (0-0.2); Basophils % (auto) 0.3 % (0.0-2.0); Eosinophils # (auto) 0 10 ^3/uL (0-0.8); Eosinophils % (auto) 0.1 % (0.0-7.0); Hematocrit 49.5 % (41.0-53.0); Hemoglobin 16.4 g/dL (13.5-17.5); Lymphocytes # (auto) 1.2 10 ^3/uL (0.4-5.4); Lymphocytes % (auto) 12.5 % (10.0-50.0); Mean Corpuscular Hgb Conc. 33.1 g/dL (32.0-36.0); Mean Corpuscular Volume 90.7 fL (80.0-100.0); Monocytes # (auto) 0.7 10 ^3/uL (0-1.3); Monocytes % (auto) 7.6 % (0.0-12.0); Neutrophils # (auto) 7.4 10 ^3/uL (1.6-8.6); Neutrophils % (auto) 79.5 % (37.0-80.0); Nucleated Red Blood Cells % 0.1 %; Red Blood Cells 5.46 10^6/uL (4.5-5.90); Red Cell Distribution Width 16.5 % (11.8-14.3); White Blood Cell 9.3 10^3/uL (4.4-10.8)
[2023-02-15 11:47] LABS: Albumin 3.9 g/dL (3.4-5.0); Calcium 8.9 mg/dL (8.5-10.1); Potassium 4.7 mmol/L (3.5-5.1)
[2023-02-15 11:48] LABS: BUN/Creatinine Ratio 5.4 (10.0-20.0); Bilirubin, Total 0.4 mg/dL (0.2-1.0); Total Protein 6.9 g/dL (6.4-8.2)
[2023-02-15 11:53] LABS: INR 1.05 (0.9-1.15); Partial Thromboplastin Time 28.3 sec (24.6-33.4)
[2023-02-15] MEDS ORDERED: IOHEXOL 350 MG/ML 100ML IJ ONE (12:41)
[2023-02-15] MEDS ORDERED: ACETAMINOPHEN 325 MG TAB PO PRN (12:45)
[2023-02-15 13:09] LABS: Urine Bacteria NONE SEEN /hpf (None Seen); Urine Blood TRACE /uL (Negative); Urine Mucus FEW (None Seen); Urine Specific Gravity 1.012 (1.001-1.035); Urine WBC 1 /hpf (0 - 3)
[2023-02-15 13:31] LABS: Alcohol, Urine < 3.0 mg/dL (0-10); Amphetamine Screen, Urine NEGATIVE (NEGATIVE); Barbiturate Scree,Urine NEGATIVE (NEGATIVE); Benzodiazephine Screen, Urine NEGATIVE (NEGATIVE); Cocaine Screen, Urine NEGATIVE (NEGATIVE); Phencyclidine Screen, Urine NEGATIVE (NEGATIVE)
[2023-02-15 13:39] LABS: Cannabinoid Screen, Urine POSITIVE (NEGATIVE); Opiate Scree,Urine NEGATIVE (NEGATIVE)
[2023-02-15] MEDS: SODIUM CHLORIDE 0.9% 1,000 ML IV SCH ×2 (13:49→23:33)
[2023-02-15] MEDS ORDERED: LORazepam 2MG/ML-1ML VIAL IV PRN ×3 (15:30→20:00)
[2023-02-15] MEDS: APIXABAN 5 MG TAB PO SCH (22:22)
[2023-02-16 06:00] LABS: Basophils # (auto) 0 10 ^3/uL (0-0.2); Basophils % (auto) 0.4 % (0.0-2.0); Eosinophils # (auto) 0 10 ^3/uL (0-0.8); Eosinophils % (auto) 0.3 % (0.0-7.0); Hematocrit 43.5 % (41.0-53.0); Hemoglobin 14.7 g/dL (13.5-17.5); Lymphocytes # (auto) 3.1 10 ^3/uL (0.4-5.4); Mean Corpuscular Hemoglobin 30.3 pg (28.0-32.0); Mean Corpuscular Hgb Conc. 33.9 g/dL (32.0-36.0); Mean Corpuscular Volume 89.5 fL (80.0-100.0); Monocytes # (auto) 1.3 10 ^3/uL (0-1.3); Monocytes % (auto) 12.8 % (0.0-12.0); Neutrophils # (auto) 5.9 10 ^3/uL (1.6-8.6); Neutrophils % (auto) 56.5 % (37.0-80.0); Nucleated Red Blood Cells % 0.2 %; Red Blood Cells 4.86 10^6/uL (4.5-5.90); White Blood Cell 10.4 10^3/uL (4.4-10.8)
[2023-02-16 06:19] LABS: Potassium 3.3 mmol/L (3.5-5.1)
[2023-02-16 06:32] LABS: BUN/Creatinine Ratio 8.2 (10.0-20.0); Bilirubin, Total 0.8 mg/dL (0.2-1.0); Calcium 7.8 mg/dL (8.5-10.1); Total Protein 5.5 g/dL (6.4-8.2)
[2023-02-16] MEDS: SODIUM CHLORIDE 0.9% 1,000 ML IV SCH (08:54)
[2023-02-16] MEDS: APIXABAN 5 MG TAB PO SCH ×2 (09:40→22:03)
[2023-02-16] MEDS: MAGNESIUM OXIDE 400 MG TAB PO SCH ×2 (09:40→22:03)
[2023-02-16] MEDS: PANTOPRAZOLE 40 MG TAB PO SCH (09:40)
[2023-02-16] MEDS ORDERED: ENOXAPARIN SOD 40 MG/0.4 ML SYRINGE SC SCH (10:00)
[2023-02-16] MEDS: FOLIC ACID 1 MG, MULTIPLE VITAMIN 10 ML, MAGNESIUM SULF SDV 50% 8 MEQ, THIAMINE INJ 100... INJ SCH ×5 (12:36)
[2023-02-16] MEDS ORDERED: POTASSIUM CHL 20 Meq TABLET PO ONE (15:45)
[2023-02-16] MEDS: levETIRAcetam 500 MG TAB PO SCH (22:04)
[2023-02-16 22:19] VITALS: BP 110/73
[2023-02-17 05:00] VITALS: BP 151/92
[2023-02-17 05:40] LABS: Basophils # (auto) 0 10 ^3/uL (0-0.2); Basophils % (auto) 0.3 % (0.0-2.0); Eosinophils # (auto) 0 10 ^3/uL (0-0.8); Eosinophils % (auto) 0.5 % (0.0-7.0); Hematocrit 46.8 % (41.0-53.0); Hemoglobin 16.1 g/dL (13.5-17.5); Lymphocytes # (auto) 2.7 10 ^3/uL (0.4-5.4); Lymphocytes % (auto) 29.2 % (10.0-50.0); Mean Corpuscular Hemoglobin 30.8 pg (28.0-32.0); Mean Corpuscular Hgb Conc. 34.4 g/dL (32.0-36.0); Mean Corpuscular Volume 89.5 fL (80.0-100.0); Monocytes # (auto) 1.1 10 ^3/uL (0-1.3); Monocytes % (auto) 11.6 % (0.0-12.0); Neutrophils # (auto) 5.3 10 ^3/uL (1.6-8.6); Neutrophils % (auto) 58.4 % (37.0-80.0); Nucleated Red Blood Cells % 0.2 %; Red Blood Cells 5.23 10^6/uL (4.5-5.90); Red Cell Distribution Width 15.6 % (11.8-14.3); White Blood Cell 9.1 10^3/uL (4.4-10.8)
[2023-02-17 05:58] LABS: Calcium 8.7 mg/dL (8.5-10.1); Magnesium 2.3 mg/dL (1.6-2.6); Potassium 3.8 mmol/L (3.5-5.1)
[2023-02-17 06:05] LABS: Albumin 3.3 g/dL (3.4-5.0); BUN/Creatinine Ratio 11.4 (10.0-20.0); Total Protein 6.3 g/dL (6.4-8.2)
[2023-02-17 09:45] VITALS: BP 128/69
[2023-02-17] MEDS: MAGNESIUM OXIDE 400 MG TAB PO SCH (09:54)
[2023-02-17] MEDS: APIXABAN 5 MG TAB PO SCH (09:54)
[2023-02-17] MEDS: PANTOPRAZOLE 40 MG TAB PO SCH (09:54)
[2023-02-17] MEDS: levETIRAcetam 500 MG TAB PO SCH (09:54)
[2023-02-17] MEDS ORDERED: LEVE100012 PO (10:55)
[2023-02-17] MEDS: FOLIC ACID 1 MG, MULTIPLE VITAMIN 10 ML, MAGNESIUM SULF SDV 50% 8 MEQ, THIAMINE INJ 100... INJ SCH ×5 (12:00)
[2023-02-17 12:45] VITALS: BP 129/76
[2023-02-17 12:58] VITALS: BP 129/76
== END 2023-02-17 17:24 | disposition home or self-care (01) | DRG 100 ==
LOC: ER 10:57 → EDBD 10:57 → OVERFLOW 12:37 → TELE-WESTW 02-16 20:41 → WEST WING 02-16 21:10 → TELE-WESTW 02-16 23:21
PROVIDERS: ADMIT Nurse Practitioner Family; ATTEND Internal Medicine Geriatric Medicine
DX: G40.409 Other generalized epilepsy and epileptic syndromes, not intractable, without status epilepticus (principal); G93.41 Metabolic encephalopathy; F10.239 Alcohol dependence with withdrawal, unspecified; I10 Essential (primary) hypertension; J44.9 Chronic obstructive pulmonary disease, unspecified; E78.5 Hyperlipidemia, unspecified; F12.90 Cannabis use, unspecified, uncomplicated; E11.9 Type 2 diabetes mellitus without complications; F17.210 Nicotine dependence, cigarettes, uncomplicated; I48.91 Unspecified atrial fibrillation; Z79.01 Long term (current) use of anticoagulants; Z79.899 Other long term (current) drug therapy; Z86.718 Personal history of other venous thrombosis and embolism
CPT/HCPCS: 36415; 70450; 70496; 70551; 71045; 80053; 80061; 80307; 81001; 82140; 82962; 83735; 83880; 84484; 85025; 85610; 85730; 93886; 95819; G0378; J7060

== ENCOUNTER 2023-05-23 15:22 | Inpatient (IN) | payer OTHER ==
[~2023-05-23] VITALS: Ht 172.7 cm; Wt 84.2 kg
[~2023-05-23 15:22] MED LIST changes: +LEVE100012 PO
[2023-05-23] MEDS ORDERED: DICYCLOMINE HCL 10 MG CAP PO ONE (16:00)
[2023-05-23] MEDS ORDERED: ONDANSETRON ODT 4 MG TAB PO ONE (16:00)
[2023-05-23 18:08] LABS: Basophils # (auto) 0 10 ^3/uL (0-0.2); Basophils % (auto) 0.3 % (0.0-2.0); Eosinophils # (auto) 0 10 ^3/uL (0-0.8); Hemoglobin 16.6 g/dL (13.5-17.5); Lymphocytes # (auto) 2.1 10 ^3/uL (0.4-5.4); Lymphocytes % (auto) 13.8 % (10.0-50.0); Mean Corpuscular Hemoglobin 29.1 pg (28.0-32.0); Mean Corpuscular Hgb Conc. 33.2 g/dL (32.0-36.0); Mean Corpuscular Volume 87.7 fL (80.0-100.0); Monocytes # (auto) 1.3 10 ^3/uL (0-1.3); Monocytes % (auto) 8.6 % (0.0-12.0); Neutrophils % (auto) 77.3 % (37.0-80.0); Nucleated Red Blood Cells % 0.2 %; Red Cell Distribution Width 15.5 % (11.8-14.3); White Blood Cell 15.5 10^3/uL (4.4-10.8)
[2023-05-23 18:15] VITALS: PULSE 77; RESP 20; O2SAT 97
[2023-05-23 18:21] LABS: Alanine Aminotransferase 15 U/L (7-40); Albumin 4.5 g/dL (3.2-4.8); Alkaline Phosphatase 63 U/L (46-116); Anion Gap 9 (5-15); Aspartate Aminotransferase 22 U/L (13-40); BUN/Creatinine Ratio 7.8 (10.0-20.0); Blood Urea Nitrogen 8 mg/dL (9-23); Calcium 9.6 mg/dL (8.7-10.4); Carbon Dioxide 23 mmol/L (20-30); Chloride 103 mmol/L (98-107); Glucose 122 mg/dL (74-106); Lipase 26 U/L (12-53); Magnesium 1.9 mg/dL (1.6-2.6); Potassium 4.1 mmol/L (3.5-5.1); Sodium 135 mmol/L (136-145)
[2023-05-23 18:22] LABS: Bilirubin, Total 1.3 mg/dL (0.2-1.0); Total Protein 7.2 g/dL (5.7-8.2)
[2023-05-23] MEDS ORDERED: AZITHROMYCIN 500MG/ 250ML 250 ML IV ONE (19:15)
[2023-05-23] MEDS ORDERED: HYDROcodone-ACET 5/325MG TAB PO PRN (21:15)
[2023-05-23] MEDS ORDERED: ONDANSETRON HCL 4 MG/2 ML VIAL IV PRN (21:15)
[2023-05-23] MEDS ORDERED: ACETAMINOPHEN 325 MG TAB PO PRN (21:15)
[2023-05-23] MEDS ORDERED: cefTRIAXone 1GM/50ML D5W 50 ML IV ONE (21:15)
[2023-05-23 21:30] VITALS: PULSE 84; RESP 18; O2SAT 93
[2023-05-23] MEDS: levETIRAcetam 500 MG TAB PO SCH (22:10)
[2023-05-23] MEDS: APIXABAN 5 MG TAB PO SCH (22:10)
[2023-05-24 01:49] LABS: Urine Bacteria NONE SEEN /hpf (None Seen); Urine Blood TRACE /uL (Negative); Urine Clarity Clear (Clear); Urine Color Yellow (Yellow); Urine Mucus FEW (None Seen); Urine Protein, UAD 1+ (Negative); Urine Specific Gravity 1.012 (1.001-1.035); Urine Urobilinogen Normal (Negative); Urine WBC 1 /hpf (0 - 3); Urine pH 5.5 (5.0-8.0)
[2023-05-24 06:33] LABS: Chloride 105 mmol/L (98-107); Potassium 3.6 mmol/L (3.5-5.1); Sodium 135 mmol/L (136-145)
[2023-05-24 06:34] LABS: Anion Gap 6 (5-15); Calcium 9.5 mg/dL (8.7-10.4); Carbon Dioxide 24 mmol/L (20-30)
[2023-05-24 06:36] LABS: Basophils # (auto) 0 10 ^3/uL (0-0.2); Basophils % (auto) 0.3 % (0.0-2.0); Eosinophils # (auto) 0 10 ^3/uL (0-0.8); Eosinophils % (auto) 0.3 % (0.0-7.0); Hematocrit 48.7 % (41.0-53.0); Hemoglobin 16.3 g/dL (13.5-17.5); Lymphocytes # (auto) 3.1 10 ^3/uL (0.4-5.4); Lymphocytes % (auto) 23.6 % (10.0-50.0); Mean Corpuscular Hemoglobin 29.5 pg (28.0-32.0); Mean Corpuscular Hgb Conc. 33.5 g/dL (32.0-36.0); Mean Corpuscular Volume 88.1 fL (80.0-100.0); Monocytes # (auto) 1.3 10 ^3/uL (0-1.3); Neutrophils # (auto) 8.6 10 ^3/uL (1.6-8.6); Neutrophils % (auto) 65.8 % (37.0-80.0); Nucleated Red Blood Cells % 0.4 %; Red Blood Cells 5.53 10^6/uL (4.5-5.90); Red Cell Distribution Width 15.6 % (11.8-14.3); White Blood Cell 13.1 10^3/uL (4.4-10.8)
[2023-05-24 06:39] LABS: BUN/Creatinine Ratio 4.9 (10.0-20.0); Blood Urea Nitrogen 5 mg/dL (9-23); Glucose 99 mg/dL (74-106)
[2023-05-24 08:00] VITALS: PULSE 72; RESP 16; O2SAT 96
[2023-05-24 08:44] VITALS: BP 140/71; PULSE 72; RESP 17; TEMP 97.9; O2SAT 93
[2023-05-24] MEDS: PANTOPRAZOLE 40 MG TAB PO SCH (09:28)
[2023-05-24] MEDS: levETIRAcetam 500 MG TAB PO SCH ×2 (09:28→21:25)
[2023-05-24] MEDS: APIXABAN 5 MG TAB PO SCH ×2 (09:28→21:21)
[2023-05-24 12:58] VITALS: BP 145/81; PULSE 71; RESP 17; TEMP 98.4; O2SAT 92
[2023-05-24] MEDS ORDERED: NICOTINE 21MG/24 HR TOPICAL PATCH TD ONE (15:00)
[2023-05-24 17:00] VITALS: BP 129/64; PULSE 79; RESP 17; TEMP 97.9; O2SAT 94
[2023-05-24] MEDS: TAMSULOSIN HYDROCHLORIDE 0.4 MG CAP PO SCH (17:08)
[2023-05-24 20:00] VITALS: PULSE 88; RESP 18
[2023-05-24] MEDS: cefTRIAXone 1GM/50ML D5W 50 ML IV SCH (21:25)
[2023-05-24 22:00] VITALS: BP 144/82; PULSE 88; RESP 18; TEMP 98.3; O2SAT 92
[2023-05-25] VITALS (7 sets, daily range): BP systolic 96–143; BP diastolic 45–82; PULSE 91–102; RESP 15–20; TEMP 97.7–98.3; O2SAT 93–97
[2023-05-25 06:32] LABS: Basophils # (auto) 0.1 10 ^3/uL (0-0.2); Basophils % (auto) 0.7 % (0.0-2.0); Eosinophils # (auto) 0.1 10 ^3/uL (0-0.8); Eosinophils % (auto) 0.6 % (0.0-7.0); Hematocrit 48.1 % (41.0-53.0); Hemoglobin 16.3 g/dL (13.5-17.5); Lymphocytes # (auto) 2.9 10 ^3/uL (0.4-5.4); Lymphocytes % (auto) 28.6 % (10.0-50.0); Mean Corpuscular Hemoglobin 29.5 pg (28.0-32.0); Mean Corpuscular Hgb Conc. 33.9 g/dL (32.0-36.0); Mean Corpuscular Volume 86.9 fL (80.0-100.0); Monocytes # (auto) 1.1 10 ^3/uL (0-1.3); Monocytes % (auto) 11.3 % (0.0-12.0); Neutrophils # (auto) 5.9 10 ^3/uL (1.6-8.6); Neutrophils % (auto) 58.8 % (37.0-80.0); Nucleated Red Blood Cells % 0.3 %; Red Blood Cells 5.54 10^6/uL (4.5-5.90); Red Cell Distribution Width 15.3 % (11.8-14.3)
[2023-05-25 06:40] LABS: Chloride 104 mmol/L (98-107); Potassium 3.5 mmol/L (3.5-5.1); Sodium 135 mmol/L (136-145)
[2023-05-25 06:41] LABS: Anion Gap 7 (5-15); Calcium 9.3 mg/dL (8.7-10.4); Carbon Dioxide 24 mmol/L (20-30)
[2023-05-25 06:46] LABS: BUN/Creatinine Ratio 9.6 (10.0-20.0); Blood Urea Nitrogen 10 mg/dL (9-23); Glucose 104 mg/dL (74-106)
[2023-05-25 08:06] LABS: PSA Free 0.61 ng/mL; Prostate Specific Antigen 3.9 ng/mL (0.0-4.0)
[2023-05-25] MEDS: levETIRAcetam 500 MG TAB PO SCH ×2 (10:26→21:26)
[2023-05-25] MEDS: APIXABAN 5 MG TAB PO SCH ×2 (10:27→21:26)
[2023-05-25] MEDS: PANTOPRAZOLE 40 MG TAB PO SCH (10:27)
[2023-05-25] MEDS: NICOTINE 21MG/24 HR TOPICAL PATCH TD SCH (10:37)
[2023-05-25] MEDS: TAMSULOSIN HYDROCHLORIDE 0.4 MG CAP PO SCH (18:27)
[2023-05-25] MEDS: cefTRIAXone 1GM/50ML D5W 50 ML IV SCH (21:26)
[2023-05-26 05:00] VITALS: BP 101/63; PULSE 91; RESP 16; TEMP 98.3; O2SAT 96
[2023-05-26 09:00] VITALS: BP 120/77; PULSE 98; RESP 17; TEMP 97.4; O2SAT 94
[2023-05-26] MEDS: APIXABAN 5 MG TAB PO SCH (09:09)
[2023-05-26] MEDS: levETIRAcetam 500 MG TAB PO SCH (09:10)
[2023-05-26] MEDS: NICOTINE 21MG/24 HR TOPICAL PATCH TD SCH (09:11)
[2023-05-26 13:00] VITALS: BP 113/71; PULSE 91; RESP 18; TEMP 98.2; O2SAT 92
[2023-05-26] MEDS ORDERED: POLY335015 PO (14:46)
[2023-05-26] MEDS ORDERED: CEFD300C2 PO (14:46)
[2023-05-26] MEDS ORDERED: TAMS-35 PO (14:46)
[2023-05-26] MEDS ORDERED: POLYETHYLENE GLYCOL 17 GM PWDR PO ONE (15:00)
== END 2023-05-26 16:20 | disposition home or self-care (01) | DRG 872 ==
LOC: EDBD 15:22 → ER 15:22 → OVERFLOW 21:16 → WEST WING 05-24 08:34
PROVIDERS: ADMIT Nurse Practitioner; ATTEND Nurse Practitioner Acute Care
DX: A41.9 Sepsis, unspecified organism (principal); J44.0 Chronic obstructive pulmonary disease with (acute) lower respiratory infection; N39.0 Urinary tract infection, site not specified; R62.7 Adult failure to thrive; I10 Essential (primary) hypertension; F17.200 Nicotine dependence, unspecified, uncomplicated; R56.9 Unspecified convulsions; Z68.28 Body mass index [BMI] 28.0-28.9, adult
CPT/HCPCS: 36415; 71045; 74176; 80048; 80053; 81001; 83605; 83690; 83735; 83880; 84154; 84484; 85025; 87086; 93005; 96365; 96366; G0378; J0696; Q0162

== ENCOUNTER 2023-10-14 15:16 | Emergency (ER) | payer OTHER ==
[~2023-10-14] VITALS: Ht 172.7 cm; Wt 72.7 kg
[~2023-10-14 15:16] MED LIST changes: +CEFD300C2 PO; +POLY335015 PO; +TAMS-35 PO
[2023-10-14 15:37] VITALS: BP 129/78; PULSE 70; RESP 18; O2SAT 96
[2023-10-14 16:54] LABS: Basophils # (auto) 0.1 10 ^3/uL (0-0.2); Basophils % (auto) 0.6 % (0.0-2.0); Eosinophils # (auto) 0.1 10 ^3/uL (0-0.8); Eosinophils % (auto) 1.2 % (0.0-7.0); Hematocrit 47.9 % (41.0-53.0); Hemoglobin 15.8 g/dL (13.5-17.5); Lymphocytes % (auto) 34.4 % (10.0-50.0); Mean Corpuscular Hemoglobin 29.4 pg (28.0-32.0); Mean Corpuscular Hgb Conc. 33.1 g/dL (32.0-36.0); Mean Corpuscular Volume 88.8 fL (80.0-100.0); Monocytes % (auto) 11.5 % (0.0-12.0); Neutrophils # (auto) 4.6 10 ^3/uL (1.6-8.6); Neutrophils % (auto) 52.3 % (37.0-80.0); Nucleated Red Blood Cells % 0.3 %; Red Blood Cells 5.39 10^6/uL (4.5-5.90); Red Cell Distribution Width 15.4 % (11.8-14.3); White Blood Cell 8.8 10^3/uL (4.4-10.8)
[2023-10-14 17:06] LABS: Alanine Aminotransferase 11 U/L (7-40); Albumin 4.5 g/dL (3.2-4.8); Alkaline Phosphatase 60 U/L (46-116); Anion Gap 5 (5-15); Aspartate Aminotransferase 16 U/L (13-40); BUN/Creatinine Ratio 7.9 (10.0-20.0); Blood Urea Nitrogen 8 mg/dL (9-23); Calcium 9.3 mg/dL (8.7-10.4); Carbon Dioxide 27 mmol/L (20-30); Chloride 105 mmol/L (98-107); Glucose 89 mg/dL (74-106); Lipase 44 U/L (12-53); Sodium 137 mmol/L (136-145)
[2023-10-14 17:07] LABS: Bilirubin, Total 0.7 mg/dL (0.2-1.0)
[2023-10-14 18:20] LABS: Urine Bacteria NONE SEEN /hpf (None Seen); Urine Blood TRACE /uL (Negative); Urine Clarity Clear (Clear); Urine Color Yellow (Yellow); Urine Mucus FEW (None Seen); Urine Protein, UAD Negative (Negative); Urine Specific Gravity 1.016 (1.001-1.035); Urine Urobilinogen Normal (Negative); Urine WBC 7 /hpf (0 - 3)
[2023-10-14] MEDS ORDERED: HYDROcodone-ACET 5/325MG TAB PO ONE (19:30)
== END 2023-10-14 20:04 | disposition home or self-care (01) ==
LOC: ER 15:16
DX: G89.29 Other chronic pain (principal); R10.9 Unspecified abdominal pain; N40.0 Benign prostatic hyperplasia without lower urinary tract symptoms; R93.89 Abnormal findings on diagnostic imaging of other specified body structures; I10 Essential (primary) hypertension; J44.9 Chronic obstructive pulmonary disease, unspecified; E78.5 Hyperlipidemia, unspecified; Z79.899 Other long term (current) drug therapy
CPT/HCPCS: 36415; 74176; 80053; 81001; 83605; 83690; 84484; 85025

== ENCOUNTER 2023-10-18 20:20 | Inpatient (IN) | payer OTHER ==
[~2023-10-18] VITALS: Ht 170.2 cm; Wt 57.6 kg
[2023-10-18 21:00] VITALS: PULSE 95; RESP 14; O2SAT 99
[2023-10-18] MEDS: levETIRAcetam 1000 mg/100ml 100 ML IV ONE (21:17)
[2023-10-18 21:21] LABS: Chloride 102 mmol/L (98-107); Potassium 4.3 mmol/L (3.5-5.1); Sodium 137 mmol/L (136-145)
[2023-10-18 21:22] LABS: Anion Gap 11 (5-15); Basophils # (auto) 0.1 10 ^3/uL (0-0.2); Basophils % (auto) 0.6 % (0.0-2.0); Carbon Dioxide 24 mmol/L (20-30); Eosinophils # (auto) 0 10 ^3/uL (0-0.8); Hematocrit 48.7 % (41.0-53.0); Mean Corpuscular Hemoglobin 29.1 pg (28.0-32.0); Mean Corpuscular Hgb Conc. 32.9 g/dL (32.0-36.0); Mean Corpuscular Volume 88.4 fL (80.0-100.0); Neutrophils # (auto) 12.8 10 ^3/uL (1.6-8.6); Neutrophils % (auto) 75.4 % (37.0-80.0); Nucleated Red Blood Cells % 0.2 %; Red Blood Cells 5.51 10^6/uL (4.5-5.90); Red Cell Distribution Width 15.7 % (11.8-14.3)
[2023-10-18 21:23] LABS: Calcium 10.1 mg/dL (8.5-10.1)
[2023-10-18 21:27] LABS: Blood Urea Nitrogen 9 mg/dL (9-23); Glucose 84 mg/dL (74-106)
[2023-10-19 08:00] VITALS: O2SAT 100
[2023-10-19 08:40] LABS: Chloride 103 mmol/L (98-107); Potassium 4.1 mmol/L (3.5-5.1); Sodium 135 mmol/L (136-145)
[2023-10-19 08:41] LABS: Basophils # (auto) 0 10 ^3/uL (0-0.2); Basophils % (auto) 0.2 % (0.0-2.0); Eosinophils # (auto) 0 10 ^3/uL (0-0.8); Eosinophils % (auto) 0.1 % (0.0-7.0); Hemoglobin 16.2 g/dL (13.5-17.5); Lymphocytes # (auto) 2.8 10 ^3/uL (0.4-5.4); Lymphocytes % (auto) 17.4 % (10.0-50.0); Mean Corpuscular Hemoglobin 29.4 pg (28.0-32.0); Mean Corpuscular Volume 89.1 fL (80.0-100.0); Monocytes # (auto) 1.8 10 ^3/uL (0-1.3); Monocytes % (auto) 11.4 % (0.0-12.0); Neutrophils # (auto) 11.4 10 ^3/uL (1.6-8.6); Neutrophils % (auto) 70.9 % (37.0-80.0); Nucleated Red Blood Cells % 0.1 %; Red Cell Distribution Width 15.4 % (11.8-14.3); White Blood Cell 16.2 10^3/uL (4.4-10.8)
[2023-10-19 08:43] LABS: Anion Gap 9 (5-15); BUN/Creatinine Ratio 6.8 (10.0-20.0); Blood Urea Nitrogen 7 mg/dL (9-23); Calcium 9.8 mg/dL (8.5-10.1); Carbon Dioxide 23 mmol/L (20-30); Glucose 96 mg/dL (74-106)
[2023-10-19] MEDS: ENOXAPARIN SOD 40 MG/0.4 ML SYRINGE SC SCH (09:29)
[2023-10-19] MEDS: levETIRAcetam 500 MG TAB PO SCH (09:29)
[2023-10-19] MEDS: FINASTERIDE 5 MG TAB PO SCH (09:31)
[2023-10-19] MEDS ORDERED: LORazepam 2MG/ML-1ML VIAL IV PRN (09:45)
[2023-10-19] MEDS: hydrALAZINE HCL 20 MG/ML VL IV PRN (10:12)
[2023-10-19 14:57] LABS: Folate (Folic Acid) > 24.00 ng/mL (>5.38)
[2023-10-19] MEDS: FOLIC ACID 1 MG, MULTIPLE VITAMIN 10 ML, MAGNESIUM SULF SDV 50% 8 MEQ, THIAMINE INJ 100... INJ SCH (18:29)
[2023-10-19 19:55] VITALS: PULSE 92; RESP 20; O2SAT 98
[2023-10-19] MEDS: LORazepam 2MG/ML-1ML VIAL IV ONE (20:22)
[2023-10-20] VITALS (7 sets, daily range): BP systolic 123–132; BP diastolic 72–84; PULSE 87–97; RESP 16–27; TEMP 97.3–98.3; O2SAT 0–100
[2023-10-20] MEDS ORDERED: LACT10SO3 PO (09:36)
[2023-10-20] MEDS ORDERED: PANT40T PO (09:36)
[2023-10-20] MEDS ORDERED: FIN5T PO (09:36)
[2023-10-20] MEDS: PANTOPRAZOLE 40 MG TAB PO SCH (10:58)
[2023-10-20] MEDS: NICOTINE 21MG/24 HR TOPICAL PATCH TD ONE (12:22)
[2023-10-20] MEDS: ACETAMINOPHEN 325 MG TAB PO PRN (21:51)
[2023-10-21] MEDS: ONDANSETRON HCL 4 MG/2 ML VIAL IV PRN (04:26)
[2023-10-21 05:00] VITALS: BP 103/61; PULSE 86; RESP 17; TEMP 97.6; O2SAT 92
[2023-10-21 08:44] VITALS: BP 100/64; PULSE 109; RESP 18; TEMP 97; O2SAT 94
[2023-10-21] MEDS: NICOTINE 21MG/24 HR TOPICAL PATCH TD SCH (10:11)
[2023-10-21] MEDS ORDERED: LEVE100012 PO (11:03)
[2023-10-21 13:00] VITALS: BP 103/64; PULSE 103; RESP 17; TEMP 97.7; O2SAT 97
[2023-10-21 14:22] VITALS: BP 103/64; PULSE 103; RESP 17; TEMP 97.7; O2SAT 97
== END 2023-10-21 19:25 | disposition home or self-care (01) | DRG 100 ==
LOC: EDBD 20:20 → EDSEX 20:20 → ER 20:20 → OVERFLOW 23:37 → WEST WING 23:37
PROVIDERS: ADMIT Nurse Practitioner; ATTEND Family Medicine
DX: G40.409 Other generalized epilepsy and epileptic syndromes, not intractable, without status epilepticus (principal); G93.41 Metabolic encephalopathy; F05 Delirium due to known physiological condition; F10.139 Alcohol abuse with withdrawal, unspecified; Y90.9 Presence of alcohol in blood, level not specified; E78.5 Hyperlipidemia, unspecified; G30.9 Alzheimer's disease, unspecified; F02.80 Dementia in other diseases classified elsewhere, unspecified severity, without behavioral disturbance, psychotic disturbance, mood disturbance, and anxiety; J44.9 Chronic obstructive pulmonary disease, unspecified; E11.9 Type 2 diabetes mellitus without complications; K52.9 Noninfective gastroenteritis and colitis, unspecified; F17.200 Nicotine dependence, unspecified, uncomplicated; I51.89 Other ill-defined heart diseases; Z83.3 Family history of diabetes mellitus
CPT/HCPCS: 36415; 70450; 80048; 82607; 82746; 84439; 84443; 85025; 93005; 95819; 96365; G0378; J2405

== ENCOUNTER 2024-01-27 09:05 | Emergency (ER) | payer OTHER ==
[~2024-01-27] VITALS: Ht 177.8 cm; Wt 54.5 kg
[~2024-01-27 09:05] MED LIST changes: +FIN5T PO; +LACT10SO3 PO; +PANT40T PO
[2024-01-27 09:50] VITALS: PULSE 83; RESP 20; O2SAT 92
[2024-01-27] MEDS: levETIRAcetam 1000 mg/100ml 100 ML IV ONE (09:55)
[2024-01-27 09:56] LABS: Chloride 103 mmol/L (98-107); Potassium 4.4 mmol/L (3.5-5.1); Sodium 135 mmol/L (136-145)
[2024-01-27 09:57] LABS: Anion Gap 9 (5-15); Carbon Dioxide 23 mmol/L (20-30)
[2024-01-27 09:58] LABS: Calcium 9.8 mg/dL (8.5-10.1)
[2024-01-27 10:02] LABS: Glucose 140 mg/dL (74-106)
[2024-01-27 10:03] LABS: BUN/Creatinine Ratio 8.8 (10.0-20.0); Blood Urea Nitrogen 10 mg/dL (9-23)
[2024-01-27 10:26] LABS: Basophils # (auto) 0.1 10 ^3/uL (0-0.2); Basophils % (auto) 0.6 % (0.0-2.0); Eosinophils # (auto) 0.1 10 ^3/uL (0-0.8); Eosinophils % (auto) 1.1 % (0.0-7.0); Hematocrit 42.7 % (41.0-53.0); Hemoglobin 14.1 g/dL (13.5-17.5); Lymphocytes # (auto) 2.5 10 ^3/uL (0.4-5.4); Lymphocytes % (auto) 25.6 % (10.0-50.0); Mean Corpuscular Hemoglobin 28.8 pg (28.0-32.0); Mean Corpuscular Volume 87.3 fL (80.0-100.0); Monocytes # (auto) 0.9 10 ^3/uL (0-1.3); Monocytes % (auto) 8.7 % (0.0-12.0); Neutrophils # (auto) 6.3 10 ^3/uL (1.6-8.6); Nucleated Red Blood Cells % 0.1 %; Red Blood Cells 4.89 10^6/uL (4.5-5.90); White Blood Cell 9.8 10^3/uL (4.4-10.8)
[2024-01-27 11:24] VITALS: BP 119/71; PULSE 72; RESP 16; O2SAT 93
== END 2024-01-27 11:55 | disposition home or self-care (01) ==
LOC: EDBD 09:05 → EDUNIT# 09:05 → ER 09:05
DX: R56.9 Unspecified convulsions (principal); J44.9 Chronic obstructive pulmonary disease, unspecified; E78.5 Hyperlipidemia, unspecified; I10 Essential (primary) hypertension; F17.210 Nicotine dependence, cigarettes, uncomplicated; F12.10 Cannabis abuse, uncomplicated
CPT/HCPCS: 36415; 80048; 85025; 96365; 99284; J1953

== ENCOUNTER 2024-01-27 22:32 | Emergency (ER) | payer OTHER ==
[~2024-01-27] VITALS: Ht 172.7 cm; Wt 61.0 kg
[2024-01-27 22:48] VITALS: BP 99/70; PULSE 89; RESP 16; O2SAT 98
[2024-01-27 23:07] LABS: Basophils # (auto) 0.1 10 ^3/uL (0-0.2); Basophils % (auto) 0.7 % (0.0-2.0); Eosinophils # (auto) 0.1 10 ^3/uL (0-0.8); Eosinophils % (auto) 1.3 % (0.0-7.0); Hematocrit 41.5 % (41.0-53.0); Hemoglobin 13.8 g/dL (13.5-17.5); Lymphocytes # (auto) 3.8 10 ^3/uL (0.4-5.4); Lymphocytes % (auto) 33.9 % (10.0-50.0); Mean Corpuscular Hemoglobin 28.6 pg (28.0-32.0); Mean Corpuscular Hgb Conc. 33.2 g/dL (32.0-36.0); Mean Corpuscular Volume 86.2 fL (80.0-100.0); Monocytes # (auto) 1.3 10 ^3/uL (0-1.3); Monocytes % (auto) 11.6 % (0.0-12.0); Neutrophils # (auto) 5.8 10 ^3/uL (1.6-8.6); Neutrophils % (auto) 52.5 % (37.0-80.0); Nucleated Red Blood Cells % 0.1 %; Red Blood Cells 4.81 10^6/uL (4.5-5.90); Red Cell Distribution Width 15.3 % (11.8-14.3); White Blood Cell 11.1 10^3/uL (4.4-10.8)
[2024-01-27 23:31] LABS: Chloride 104 mmol/L (98-107); Potassium 4.2 mmol/L (3.5-5.1); Sodium 136 mmol/L (136-145)
[2024-01-27 23:32] LABS: Anion Gap 6 (5-15); Calcium 10.2 mg/dL (8.7-10.4); Carbon Dioxide 26 mmol/L (20-30)
[2024-01-27 23:37] LABS: BUN/Creatinine Ratio 10.9 (10.0-20.0); Blood Urea Nitrogen 13 mg/dL (9-23); Glucose 92 mg/dL (74-106)
[2024-01-28 01:25] LABS: Urine Bacteria None Seen /hpf (None Seen)
[2024-01-28 01:42] LABS: Urine Blood Negative /uL (Negative); Urine Clarity Clear (Clear); Urine Color Yellow (Yellow); Urine Protein, UAD Negative (Negative); Urine Specific Gravity 1.012 (1.001-1.035); Urine Urobilinogen Normal (Negative); Urine WBC 1 /hpf (0 - 3)
== END 2024-01-28 02:03 | disposition left against medical advice (07) ==
LOC: ER 22:32
DX: G45.9 Transient cerebral ischemic attack, unspecified (principal); J44.9 Chronic obstructive pulmonary disease, unspecified; E78.5 Hyperlipidemia, unspecified; I10 Essential (primary) hypertension; F17.210 Nicotine dependence, cigarettes, uncomplicated; F12.10 Cannabis abuse, uncomplicated
CPT/HCPCS: 36415; 80048; 81001; 82962; 84484; 85025

== ENCOUNTER 2024-05-07 11:00 | Emergency (ER) | payer OTHER ==
[~2024-05-07] VITALS: Ht 182.9 cm; Wt 68.1 kg
[2024-05-07] MEDS: levETIRAcetam 500 MG TAB PO ONE (13:35)
[2024-05-07 15:08] VITALS: BP 135/86; PULSE 81; RESP 17; TEMP 98.2; O2SAT 95
== END 2024-05-07 15:47 | disposition home or self-care (01) ==
LOC: ER 11:00 → EDBD 11:00 → ER 15:47
DX: S00.81XA Abrasion of other part of head, initial encounter (principal); G40.909 Epilepsy, unspecified, not intractable, without status epilepticus; I10 Essential (primary) hypertension; E78.5 Hyperlipidemia, unspecified; J44.9 Chronic obstructive pulmonary disease, unspecified; F03.90 Unspecified dementia, unspecified severity, without behavioral disturbance, psychotic disturbance, mood disturbance, and anxiety; F17.210 Nicotine dependence, cigarettes, uncomplicated; F15.90 Other stimulant use, unspecified, uncomplicated; Z91.199 Patient's noncompliance with other medical treatment and regimen due to unspecified reason; X58.XXXA Exposure to other specified factors, initial encounter; Y93.89 Activity, other specified; Y92.89 Other specified places as the place of occurrence of the external cause; Y99.8 Other external cause status
CPT/HCPCS: 70450

== ENCOUNTER 2024-06-07 16:25 | Inpatient (IN) | payer OTHER ==
[~2024-06-07] VITALS: Ht 170.2 cm; Wt 65.7 kg
[2024-06-07 18:45] LABS: Basophils # (auto) 0 10 ^3/uL (0-0.2); Basophils % (auto) 0.2 % (0.0-2.0); Eosinophils # (auto) 0 10 ^3/uL (0-0.8); Hematocrit 40.7 % (41.0-53.0); Hemoglobin 13.8 g/dL (13.5-17.5); Lymphocytes # (auto) 1.3 10 ^3/uL (0.4-5.4); Lymphocytes % (auto) 7.2 % (10.0-50.0); Mean Corpuscular Hemoglobin 28.7 pg (28.0-32.0); Mean Corpuscular Hgb Conc. 33.9 g/dL (32.0-36.0); Mean Corpuscular Volume 84.5 fL (80.0-100.0); Monocytes # (auto) 1.6 10 ^3/uL (0-1.3); Monocytes % (auto) 8.9 % (0.0-12.0); Neutrophils # (auto) 14.7 10 ^3/uL (1.6-8.6); Neutrophils % (auto) 83.7 % (37.0-80.0); Platelet Count (auto) 150 10^3/uL (140-450); Red Blood Cells 4.82 10^6/uL (4.5-5.90); White Blood Cell 17.6 10^3/uL (4.4-10.8)
[2024-06-07 18:55] LABS: Alanine Aminotransferase 11 U/L (7-40); Alkaline Phosphatase 53 U/L (46-116); Anion Gap 8 (5-15); BUN/Creatinine Ratio 6.8 (10.0-20.0); Blood Urea Nitrogen 8 mg/dL (9-23); Calcium 9.5 mg/dL (8.7-10.4); Carbon Dioxide 23 mmol/L (20-31); Chloride 106 mmol/L (98-107); Glucose 138 mg/dL (74-106); Potassium 4.3 mmol/L (3.5-5.1); Sodium 137 mmol/L (136-145)
[2024-06-07 18:56] LABS: Albumin 4.3 g/dL (3.2-4.8); Aspartate Aminotransferase 18 U/L (13-40)
[2024-06-07 18:57] LABS: Bilirubin, Total 0.6 mg/dL (0.2-1.0); Total Protein 6.6 g/dL (5.7-8.2)
[2024-06-07] MEDS ORDERED: LORazepam 2MG/ML-1ML VIAL IV PRN (23:30)
[2024-06-07] MEDS ORDERED: ACETAMINOPHEN 325 MG TAB PO PRN (23:30)
[2024-06-07] MEDS ORDERED: ONDANSETRON HCL 4 MG/2 ML VIAL IV PRN (23:30)
[2024-06-07] MEDS ORDERED: MORPHINE SULFATE INJ 2 MG/ml SYRG IV PRN (23:30)
[2024-06-07] MEDS ORDERED: NITROGLYCERIN 0.4 MG SL TAB SL PRN (23:30)
[2024-06-07] MEDS: LORazepam 2MG/ML-1ML VIAL IV ONE (23:30)
[2024-06-08] MEDS: levETIRAcetam 1000 mg/100ml 100 ML IV ONE (02:46)
[2024-06-08 03:13] VITALS: PULSE 97; RESP 18; O2SAT 97
[2024-06-08 04:28] LABS: Basophils # (auto) 0 10 ^3/uL (0-0.2); Basophils % (auto) 0.3 % (0.0-2.0); Eosinophils # (auto) 0 10 ^3/uL (0-0.8); Eosinophils % (auto) 0.1 % (0.0-7.0); Hemoglobin 13.8 g/dL (13.5-17.5); Lymphocytes # (auto) 2.7 10 ^3/uL (0.4-5.4); Lymphocytes % (auto) 17.9 % (10.0-50.0); Mean Corpuscular Hemoglobin 28.8 pg (28.0-32.0); Mean Corpuscular Hgb Conc. 33.5 g/dL (32.0-36.0); Mean Corpuscular Volume 85.9 fL (80.0-100.0); Monocytes # (auto) 1.9 10 ^3/uL (0-1.3); Monocytes % (auto) 12.7 % (0.0-12.0); Neutrophils # (auto) 10.4 10 ^3/uL (1.6-8.6); Platelet Count (auto) 141 10^3/uL (140-450); Red Blood Cells 4.78 10^6/uL (4.5-5.90); Red Cell Distribution Width 16.6 % (11.8-14.3)
[2024-06-08 04:41] LABS: Chloride 105 mmol/L (98-107); Potassium 3.8 mmol/L (3.5-5.1); Sodium 137 mmol/L (136-145)
[2024-06-08 04:42] LABS: Anion Gap 8 (5-15); Calcium 9.6 mg/dL (8.7-10.4); Carbon Dioxide 24 mmol/L (20-31)
[2024-06-08 04:47] LABS: BUN/Creatinine Ratio 7.6 (10.0-20.0); Blood Urea Nitrogen 8 mg/dL (9-23); Glucose 101 mg/dL (74-106)
[2024-06-08] MEDS: PANTOPRAZOLE 40 MG TAB PO SCH (06:22)
[2024-06-08] MEDS ORDERED: APIXABAN 5 MG TAB PO SCH (10:00)
[2024-06-08] MEDS ORDERED: ENOXAPARIN SOD 40 MG/0.4 ML SYRINGE SC SCH (10:00)
[2024-06-08] MEDS: levETIRAcetam 500 MG TAB PO SCH (10:49)
[2024-06-08 12:27] VITALS: PULSE 58; RESP 15; O2SAT 100
[2024-06-08 13:26] LABS: Urine Bacteria FEW /hpf (None Seen); Urine Blood 2+ /uL (Negative); Urine Clarity Clear (Clear); Urine Color Light-Yellow (Yellow); Urine Mucus FEW (None Seen); Urine Protein, UAD 1+ (Negative); Urine Specific Gravity 1.013 (1.001-1.035); Urine Urobilinogen Normal (Negative); Urine WBC 3 /hpf (0 - 3); Urine pH 5.5 (5.0-9.0)
[2024-06-08] MEDS: PIPERACILLIN-TAZOB 3.375GM 100 ML IV ONE (18:24)
[2024-06-08] MEDS: TAMSULOSIN HYDROCHLORIDE 0.4 MG CAP PO SCH (18:24)
[2024-06-08 21:00] VITALS: BP 105/69; PULSE 65; RESP 20; TEMP 98.2; O2SAT 93
[2024-06-08] MEDS: PIPERACILLIN-TAZOB 3.375GM 100 ML IV SCH (21:35)
[2024-06-08 22:16] VITALS: PULSE 65; RESP 20; O2SAT 93
[2024-06-08] MEDS: FOLIC ACID 1 MG, MULTIPLE VITAMIN 10 ML, MAGNESIUM SULF SDV 50% 8 MEQ, THIAMINE INJ 100... INJ SCH (23:37)
[2024-06-09] VITALS (7 sets, daily range): BP systolic 93–115; BP diastolic 54–71; PULSE 82–92; RESP 16–20; TEMP 97.6–98.4; O2SAT 93–95
[2024-06-09] MEDS: MAGNESIUM OXIDE 400 MG TAB PO ONE (17:45)
[2024-06-09] MEDS: MULTIPLE VITAMINS W/ MINERALS TAB PO ONE (17:45)
[2024-06-09] MEDS: THIAMINE HCL 100 MG TAB PO ONE (17:45)
[2024-06-09] MEDS: FOLIC ACID 1 MG TAB PO ONE (17:45)
[2024-06-10 05:00] VITALS: BP 112/65; PULSE 79; RESP 18; TEMP 98.1; O2SAT 91
[2024-06-10 07:27] LABS: Anion Gap 6 (5-15); Basophils # (auto) 0 10 ^3/uL (0-0.2); Basophils % (auto) 0.4 % (0.0-2.0); Carbon Dioxide 25 mmol/L (20-31); Chloride 105 mmol/L (98-107); Eosinophils # (auto) 0.1 10 ^3/uL (0-0.8); Eosinophils % (auto) 0.9 % (0.0-7.0); Hematocrit 38.7 % (41.0-53.0); Lymphocytes # (auto) 2.6 10 ^3/uL (0.4-5.4); Lymphocytes % (auto) 24.7 % (10.0-50.0); Mean Corpuscular Hemoglobin 28.6 pg (28.0-32.0); Mean Corpuscular Hgb Conc. 33.7 g/dL (32.0-36.0); Monocytes # (auto) 1.4 10 ^3/uL (0-1.3); Monocytes % (auto) 13.2 % (0.0-12.0); Neutrophils # (auto) 6.5 10 ^3/uL (1.6-8.6); Neutrophils % (auto) 60.8 % (37.0-80.0); Nucleated Red Blood Cells % 0.1 %; Platelet Count (auto) 120 10^3/uL (140-450); Potassium 3.8 mmol/L (3.5-5.1); Red Blood Cells 4.55 10^6/uL (4.5-5.90); Red Cell Distribution Width 15.7 % (11.8-14.3); Sodium 136 mmol/L (136-145); White Blood Cell 10.7 10^3/uL (4.4-10.8)
[2024-06-10 07:28] LABS: Calcium 9.4 mg/dL (8.7-10.4)
[2024-06-10 07:33] LABS: BUN/Creatinine Ratio 9.7 (10.0-20.0); Blood Urea Nitrogen 12 mg/dL (9-23); Glucose 100 mg/dL (74-106)
[2024-06-10 08:45] VITALS: BP 119/59; PULSE 87; RESP 18; TEMP 98.5; O2SAT 93
[2024-06-10] MEDS: MULTIPLE VITAMINS W/ MINERALS TAB PO SCH (10:21)
[2024-06-10] MEDS: THIAMINE HCL 100 MG TAB PO SCH (10:22)
[2024-06-10] MEDS: FOLIC ACID 1 MG TAB PO SCH (10:23)
[2024-06-10] MEDS: MAGNESIUM OXIDE 400 MG TAB PO SCH (10:24)
[2024-06-10 13:00] VITALS: BP 108/66; PULSE 82; RESP 17; TEMP 97.5; O2SAT 91
[2024-06-10 16:38] VITALS: BP 113/60; PULSE 81; RESP 20; TEMP 98.4; O2SAT 93
[2024-06-10 19:48] VITALS: RESP 18
[2024-06-10 20:50] VITALS: BP 127/72; PULSE 90; RESP 20; TEMP 98.4; O2SAT 95
[2024-06-11 05:00] VITALS: BP 114/72; PULSE 86; RESP 22; TEMP 98.2; O2SAT 94
[2024-06-11 09:00] VITALS: BP 122/75; PULSE 72; RESP 18; TEMP 97.7; O2SAT 96
[2024-06-11 13:00] VITALS: BP 109/62; PULSE 85; RESP 17; TEMP 99.1; O2SAT 95
[2024-06-11 17:00] VITALS: BP 103/66; PULSE 84; RESP 17; TEMP 98.6; O2SAT 95
[2024-06-11 21:00] VITALS: BP 114/64; PULSE 81; RESP 19; TEMP 98.4; O2SAT 93
[2024-06-12 01:00] VITALS: BP 114/64; PULSE 81; RESP 19; TEMP 98.4; O2SAT 19
[2024-06-12 05:00] VITALS: BP_SYST 126; BP_SYST 99; BP_DIAS 53; BP_DIAS 68; PULSE 74; PULSE 82; RESP 19; TEMP 98.4; O2SAT 93
[2024-06-12 08:00] VITALS: BP 97/63; PULSE 73; RESP 16; TEMP 98.2; O2SAT 96
[2024-06-12] MEDS ORDERED: AMOX500T86 PO (10:59)
[2024-06-12 12:58] VITALS: BP 108/62; PULSE 81; RESP 16; TEMP 97.6; O2SAT 92
[2024-06-12 13:23] VITALS: BP 108/62; PULSE 81; RESP 18; TEMP 36.4; O2SAT 98
[2024-06-12 15:48] VITALS: BP 99/58; PULSE 86; RESP 17; TEMP 98.4; O2SAT 92
== END 2024-06-12 18:32 | disposition home or self-care (01) | DRG 871 ==
LOC: EDBD 16:25 → ER 16:30 → OVERFLOW 23:39 → WEST WING 06-08 19:45 → CENTRAL 06-10 17:40
PROVIDERS: ADMIT Nurse Practitioner; ATTEND Nurse Practitioner Acute Care
DX: A41.9 Sepsis, unspecified organism (principal); G93.41 Metabolic encephalopathy; J69.0 Pneumonitis due to inhalation of food and vomit; J18.9 Pneumonia, unspecified organism; J44.0 Chronic obstructive pulmonary disease with (acute) lower respiratory infection; F02.80 Dementia in other diseases classified elsewhere, unspecified severity, without behavioral disturbance, psychotic disturbance, mood disturbance, and anxiety; G30.9 Alzheimer's disease, unspecified; F10.20 Alcohol dependence, uncomplicated; G40.401 Other generalized epilepsy and epileptic syndromes, not intractable, with status epilepticus; N40.0 Benign prostatic hyperplasia without lower urinary tract symptoms; E11.9 Type 2 diabetes mellitus without complications; E78.5 Hyperlipidemia, unspecified; F17.210 Nicotine dependence, cigarettes, uncomplicated; I10 Essential (primary) hypertension; Z79.01 Long term (current) use of anticoagulants; Z83.3 Family history of diabetes mellitus; Z79.899 Other long term (current) drug therapy; Z79.4 Long term (current) use of insulin; Y90.9 Presence of alcohol in blood, level not specified
CPT/HCPCS: 36415; 70450; 71045; 72125; 80048; 80053; 81001; 82962; 83880; 84484; 85025; 87040; 87086; 93005; 95819; G0378; J2543

== ENCOUNTER 2024-11-25 08:08 | Inpatient (IN) | payer MEDICARE, OTHER ==
[~2024-11-25] VITALS: Ht 182.9 cm; Wt 70.5 kg
[~2024-11-25 08:08] MED LIST changes: +AMOX500T86 PO
[2024-11-25 08:30] VITALS: PULSE 75; RESP 20; O2SAT 93
[2024-11-25 08:40] LABS: Basophils # (auto) 0 10 ^3/uL (0-0.2); Basophils % (auto) 0.4 % (0.0-2.0); Eosinophils # (auto) 0.1 10 ^3/uL (0-0.8); Eosinophils % (auto) 0.8 % (0.0-7.0); Hematocrit 44.4 % (41.0-53.0); Lymphocytes # (auto) 3.6 10 ^3/uL (0.4-5.4); Lymphocytes % (auto) 37.3 % (10.0-50.0); Mean Corpuscular Hemoglobin 28.7 pg (28.0-32.0); Mean Corpuscular Hgb Conc. 33.8 g/dL (32.0-36.0); Mean Corpuscular Volume 85.1 fL (80.0-100.0); Monocytes # (auto) 0.8 10 ^3/uL (0-1.3); Monocytes % (auto) 8.6 % (0.0-12.0); Neutrophils # (auto) 5.1 10 ^3/uL (1.6-8.6); Neutrophils % (auto) 52.9 % (37.0-80.0); Nucleated Red Blood Cells % 0.2 %; Platelet Count (auto) 157 10^3/uL (140-450); Red Blood Cells 5.21 10^6/uL (4.5-5.90); Red Cell Distribution Width 16.2 % (11.8-14.3); White Blood Cell 9.6 10^3/uL (4.4-10.8)
[2024-11-25 08:58] LABS: Alanine Aminotransferase 11 U/L (7-40); Albumin 4.5 g/dL (3.2-4.8); Alkaline Phosphatase 56 U/L (46-116); Anion Gap 14 (5-15); Aspartate Aminotransferase 18 U/L (13-40); BUN/Creatinine Ratio 6.6 (10.0-20.0); Calcium 9.8 mg/dL (8.7-10.4); Carbon Dioxide 21 mmol/L (20-31); Chloride 104 mmol/L (98-107); Sodium 139 mmol/L (136-145)
[2024-11-25 08:59] LABS: Bilirubin, Total 0.7 mg/dL (0.2-1.0)
[2024-11-25 09:01] LABS: Blood Urea Nitrogen 8 mg/dL (9-23); Glucose 120 mg/dL (74-106)
--- NOTE | 2024-11-25 09:02 | ED.PDOC ---
HPI (NEURO) HPI Comments 79 year old male YAAKOV presents to the ED with chief complaint of seizure. EMS reports patient was found to be in a post-ictal state by daughter at 7am when she came home from work. EMS relays that the patient has history of seizures with his last one being in September. EMS states patient's seizure was not witnessed by daughter. EMS notes patient is currently on Keppra. Patient reports that he does not remember anything, but he feels better at this time, only complaining of mild abdominal pain. Patient denies any dizziness, headache, N/V, oral trauma, or incontinence. Chief Complaint: Seizure Time Seen by MD: 08:58 Primary Care Provider: UNKNOWN Reviewed Notes: Nurses Notes, Medications, Allergies Information Source: Patient Mode of Arrival: EMS Severity: Moderate Headache Severity: None Timing: Hours Duration: Minutes Prehospital treatment: None Seizure Quality: Tonic-clonic Seizure Location: Generalized Onset: At rest Circumstances: Spontaneous Symptoms: None During: LOC After: Normal Mentation History of: Hypertension, Seizure Disorder Past Medical History PAST MEDICAL HISTORY: COPD, Dementia, High Lipids, HTN, Seizures Surgical History: Denies all surgeries Family History Family History: Reviewed,noncontributory to illness, Unknown Social History Smoker: Cigarettes Alcohol: Occasionally Drugs: Marijuana Lives In: Home Constitutional: denies: chills, diaphoresis, fatigue, fever, malaise, sweats, weakness, others EENTM: denies: blurred vision, double vision, ear bleeding, ear discharge, ear drainage, ear pain, ear ringing, eye pain, eye redness, hearing loss, mouth pain, mouth swelling, nasal discharge, nose bleeding, nose congestion, nose pain, photophobia, tearing, throat pain, throat swelling, voice changes, others Respiratory: denies: cough, hemoptysis, orthopnea, SOB at rest, shortness of breath, SOB with excertion, stridor, wheezing, others Cardiovascular: denies: chest pain, dizzy spells, diaphoresis, Dyspnea on exertion, edema, irregular heart beat, left arm pain, lightheadedness, palpitations, PND, syncope, others Gastrointestinal: reports: abdominal pain; denies: abdomen distended, blood streaked bowels, constipated, diarrhea, dysphagia, difficulty swallowing, hematemesis, melena, nausea, poor appetite, poor fluid intake, rectal bleeding, rectal pain, vomiting, others Genitourinary: denies: burning, dysuria, flank pain, frequency, hematuria, incontinence, penile discharge, penile sore, pain, testicle pain, testicle swelling, urgency, others Neurological: reports: seizure; denies: dizziness, fainting, headache, left sided numbness, left sided weakness, numbness, paresthesia, pre-existing deficit, right sided numbness, right sided weakness, speech problems, tingling, tremors, weakness, others Musculoskeletal: denies: back pain, gout, joint pain, joint swelling, muscle pain, muscle stiffness, neck pain, others Integumetry: denies: bruises, change in color, change in hair/nails, dryness, laceration, lesions, lumps, rash, wounds, others Allergic/Immunocompromised: denies: Difficulty Healing, Frequent Infections, Hives, Itching, others Hematologic/Lymphatic: denies: anemia, blood clots, easy bleeding, easy bruising, swollen glands, others Endocrine: denies: excessive hunger, excessive sweating, excessive thirst, excessive urination, flushing, intolerance to cold, intolerance to heat, unexplained weight gain, unexplained weight loss, others Psychiatric: denies: anxiety, bipolar disorder, depression, hopeless, panic disorder, schizophrenia, sleepless, suicidal, others All Other Systems: Reviewed and Negative Physical Exam General Appearance: No Apparent Distress, Normal, Other (Came in out of the postictal state) HEENT: Normal ENT Inspection, PERRL/EOMI Neck: Full Range of Motion, Non-Tender, Normal, Normal Inspection Respiratory: Chest Non-Tender, Lungs Clear, No Accessory Muscle Use, No Respiratory Distress, Normal Breath Sounds Cardiovascular: No Edema, No JVD, No Murmur, No Gallop, Normal Peripheral Pulses, Regular Rate/Rhythm Breast Exam: Deferred Gastrointestinal: No Organomegaly, Non Tender, No Pulsatile Mass, Normal Bowel Sounds, Soft Genitalia: Deferred Pelvic: Deferred Rectal: Deferred Extremities: No calf tenderness, Normal capillary refill, Normal inspection, Normal range of motion, Non-tender, No pedal edema Musculoskeletal : Apperance: Normal Neurologic: Alert, inpatient nursing aide II-XII nml as Tested, No Motor Deficits, Normal Affect, Normal Mood, No Sensory Deficits Cerebellar Function: Normal Reflexes: Normal Skin: Dry, Normal Color, Warm Peripheral Pulses: 1+ carotid (R), 1+ carotid (L) Lymphatic: No Adenopathy Was a procedure done? Was a procedure done?: No Differential Diagnosis (SZ) Seizure: Anticonvulsant Withdrawl, Hypocalcemia, Hypoglycemia, Hyponatremia, Idiopathic, Epilepsy-Break Through CVA: Electrolyte Imbalance, Hypoglycemia General Weakness: Anemia, Dehydration, Dysrhythmia, Electrolyte imbalance, Hypoglycemia, Hypotension, Hypovolemia, Renal failure Headache: N/A X-Ray, Labs, Meds, VS Vital Signs Date Time Temp Pulse Resp B/P (MAP) Pulse Ox O2 Delivery O2 Flow Rate FiO2 11/25/24 12:00 98.0 74 17 133/80 (97) 94 98.0 11/25/24 12:00 68 11/25/24 08:45 67 11/25/24 08:30 75 20 93 Nasal Cannula* 3 32 11/25/24 08:30 98.7 75 20 139/75 (96) 86 98.7 11/25/24 08:12 98.7 86 16 154/78 (103) 95 98.7 11/25/24 08:12 75 Lab Test 11/25/24 08:25 Range/Units White Blood Count 9.6 4.4-10.8 10^3/uL Red Blood Count 5.21 4.5-5.90 10^6/uL Hemoglobin 15.0 13.5-17.5 g/dL Hematocrit 44.4 41.0-53.0 % Mean Corpuscular Volume 85.1 80.0-100.0 fL Mean Corpuscular Hemoglobin 28.7 28.0-32.0 pg Mean Corpuscular Hemoglobin Concent 33.8 32.0-36.0 g/dL Red Cell Distribution Width 16.2 H 11.8-14.3 % Platelet Count 157 140-450 10^3/uL Mean Platelet Volume 8.6 6.9-10.8 fL Neutrophils (%) (Auto) 52.9 37.0-80.0 % Lymphocytes (%) (Auto) 37.3 10.0-50.0 % Monocytes (%) (Auto) 8.6 0.0-12.0 % Eosinophils (%) (Auto) 0.8 0.0-7.0 % Basophils (%) (Auto) 0.4 0.0-2.0 % Neutrophils # (Auto) 5.1 1.6-8.6 10 ^3/uL Lymphocytes # (Auto) 3.6 0.4-5.4 10 ^3/uL Monocytes # (Auto) 0.8 0-1.3 10 ^3/uL Eosinophils # (Auto) 0.1 0-0.8 10 ^3/uL Basophils # (Auto) 0 0-0.2 10 ^3/uL Nucleated Red Blood Cells 0.2 % Sodium Level 139 136-145 mmol/L Potassium Level 4.0 3.5-5.1 mmol/L Chloride Level 104 98-107 mmol/L Carbon Dioxide Level 21 20-31 mmol/L Anion Gap 14 5-15 Blood Urea Nitrogen 8 L 9-23 mg/dL Creatinine 1.22 0.700-1.30 mg/dL Glomerular Filtration Rate Calc 61 >90 mL/min BUN/Creatinine Ratio 6.6 L 10.0-20.0 Serum Glucose 120 H 74-106 mg/dL Calcium Level 9.8 8.7-10.4 mg/dL Total Bilirubin 0.7 0.2-1.0 mg/dL Aspartate Amino Transferase (AST) 18 13-40 U/L Alanine Aminotransferase (ALT) 11 7-40 U/L Alkaline Phosphatase 56 46-116 U/L Total Protein 7.0 5.7-8.2 g/dL Albumin 4.5 3.2-4.8 g/dL Current Medications Medications (Trade) Dose Ordered Sig/Sukhwinder Route Start Time Stop Time Status Last Admin Lorazepam (Ativan Inj) 1 mg ONCE ONCE IV 11/25/24 09:15 11/25/24 09:16 DC 11/25/24 09:19 Levetiracetam 100 ml @ 400 mls/hr ONCE ONCE IV 11/25/24 09:15 11/25/24 09:29 DC 11/25/24 09:19 FINDINGS: The cardiac silhouette is unremarkable. The lungs demonstrate bilateral interst itial airspace opacities. 4.2 cm right mid lung masslike opacity. Right lower lobe airspace opacification. The pulmonary vasculature is unremarkable. There is no pleural effusion.. There is no pneumothorax. IMPRESSION: 1. 4.2 cm right midlung airspace opacity. Recommend CT chest to further characterize. Follow-up to resolution to exclude underlying malignancy/mass. 2. Interstitial airspace opacities which could represent sequela of pulmonary edema, atypical infection, chronic lung changes/disease. 3. Right lower lobe airspace opacification. X-Ray, Labs, Meds, VS Comment Course in the emergency department eventful patient came in because of a seizure disorder patient was found down and postictal patient is on Eliquis in his blood sugar is 92 in his pulse is 95 Chest x-ray shows airspace opacity bilaterally and we will need to have a CT to rule out malignancies EKG shows normal sinus rhythm at 75 with left atrial enlargement left axis deviation right bundle-branch block CBC is normal CMP negative Urine pending Patient will be admitted for further care Time of 1ST Reevaluation: 09:58 Reevaluation 1ST: Improved Patient Education/Counseling: Diagnosis, Treatment Family Education/Counseling: No Family Present Departure 1 Departure Time of Disposition: 12:47 Impression: Primary Impression: Seizure disorder Additional Impression: Opacities of both lungs present on chest x-ray Disposition: ADMITTED INPATIENT Admit to: Tele Condition: Serious Critical Care Note Critical Care Time?: No Stability Stability form required: Yes Unstable for transfer: Telemetry monitoring (Telemetry monitoring required), Requires medication (Requires Med for stabilization) Heart Score Heart Score: Heart Score Response (Comments) Value History Slightly Suspicious 0 EKG Repolarization Disturb 1 Age >65 2 Risk Factors 1 or 2 risk factors 1 Troponin N/A 0 Total 4 I personally scribed for AMANDA NOVAK MD ([email or web address]) on 11/25/24 at 09:02. Electronically submitted by Milan Garcia ([email or web address]). I personally scribed for AMANDA NOVAK MD ([email or web address]) on 11/25/24 at 10:22. Electronically submitted by Milan Garcia ([email or web address]). AMANDA NOVAK MD Nov 25, 2024 09:02
[2024-11-25] MEDS: LORazepam 2MG/ML-1ML VIAL IV ONE (09:19)
[2024-11-25] MEDS: levETIRAcetam 1000 mg/100ml 100 ML IV ONE (09:19)
--- NOTE | 2024-11-25 09:36 | DVH ---
CHEST RADIOGRAPH Indication: Seizure disorder Technique: Single frontal view of the chest was obtained Comparison: 06/07/2024 FINDINGS: The cardiac silhouette is unremarkable. The lungs demonstrate bilateral interstitial airspace opaciti es. 4.2 cm right mid lung masslike opacity. Right lower lobe airspace opacification. The pulmonary va sculature is unremarkable. There is no pleural effusion.. There is no pneumothorax. IMPRESSION: 1. 4.2 cm right midlung airspace opacity. Recommend CT chest to further characterize. Follow-up to r esolution to exclude underlying malignancy/mass. 2. Interstitial airspace opacities which could represent sequela of pulmonary edema, atypical infecti on, chronic lung changes/disease. 3. Right lower lobe airspace opacification.
--- NOTE | 2024-11-25 13:44 | DVHHP2 ---
History of Present Illness Reason for Visit: seizure History of Present Illness 79 yr old male pmh COPD, Dementia, High Lipids, HTN, Seizures cc pt here break through seizure was not witnessed, according to ED records patient comes in postictal from home. He had come for evaluation for a seizure. According to failing patient had the same thing in September he had to be admitted. According to patient he was taking his meds as prescribed. But not able to give much information from him due to being postictal. No chest pain no shortness a breath no dizzy. When evaluating patient's labs and imaging from ED CBC was unremarkable glucose was 120 CMP was unremarkable chest x-ray showed 4.2 cm opa cities that is consistent with pneumonia. CT scan of the brain was not performed prior to admission. We will admit patient for seizure control and provide IV antibiotics for pneumonia Past Medical History See HPI above Past Surgical History Unable to assess surgical history due to current mental status Family History Unable to assess family history due to mental status Past Social History Patient does drink by history states last drink was two days ago denies drug no smoking Review of Systems Constitutional: No: Fever, Chills, Sweats, Weakness, Malaise, Other Eyes: No: Pain, Vision change, Conjunctivae inflammation, Eyelid inflammation, Other, Redness ENT: No: Ear pain, Ear discharge, Nose pain, Nose discharge, Nose congestion, Mouth pain, Mouth swelling, Throat pain, Throat swelling, Other Respiratory: No: Cough, Dry, Shortness of breath, SOB with excertion, Wheezing, Hemoptysis, Pleuritic Pain, Sputum, Wheezing, Other Cardiovascular: No: Chest Pain, Palpitations, Orthopnea, Paroxysmal Noc. Dyspnea, Edema, Lt Headedness, Other Gastrointestinal: No: Nausea, Vomiting, Abdominal Pain, Diarrhea, Constipation, Melena, Hematochezia, Other Genitourinary: No Dysuria, No Frequency, No Incontinence, No Hematuria, No Retention, No Other Musculoskeletal: No: other, neck pain, shoulder pain, arm pain, back pain, hand pain, leg pain, foot pain Skin: No: Rash, Lesions, Jaundice, Bruising, Other Neurological: Weakness, Seizures Allergies: Coded Allergies: NO KNOWN ALLERGIES (Unverified , 02/15/23) Exam Vital Signs Vital Signs Date Time Temp Pulse Resp B/P (MAP) Pulse Ox O2 Delivery O2 Flow Rate FiO2 11/25/24 12:00 98.0 74 17 133/80 (97) 94 98.0 11/25/24 08:30 Nasal Cannula* 3 32 General Appearance: Alert, Oriented X3, Cooperative, No acute distress HEENT: Atraumatic, PERRLA, EOMI, Mucous membr. moist/pink Respiratory: Other (Rales throughout) Cardiovascular: Regular rate, Normal S1, Normal S2, No murmurs Abdominal: Normal bowel sounds, Soft, No tenderness, No hepatospenomegaly, No masses Extremities: No clubbing, No cyanosis, No edema, Normal pulses, No tenderness/swelling Skin: No rashes, No breakdown, No significant lesion Neuro: Other (Unable to assess neuro) Psych/Mental Status: Mental status NL, Mood NL Labs/Xrays Chest x-ray shows 4.2 cm right mid lung opacity in an infection and airspace opacities was consistent with pneumonia I reviewed labs, imaging CT scan abdomen pelvis, EKG and all diagnostic studies on this patient from ED records and the medical chart Labs Test 11/25/24 08:25 Range/Units White Blood Count 9.6 4.4-10.8 10^3/uL Red Blood Count 5.21 4.5-5.90 10^6/uL Hemoglobin 15.0 13.5-17.5 g/dL Hematocrit 44.4 41.0-53.0 % Mean Corpuscular Volume 85.1 80.0-100.0 fL Mean Corpuscular Hemoglobin 28.7 28.0-32.0 pg Mean Corpuscular Hemoglobin Concent 33.8 32.0-36.0 g/dL Red Cell Distribution Width 16.2 H 11.8-14.3 % Platelet Count 157 140-450 10^3/uL Mean Platelet Volume 8.6 6.9-10.8 fL Neutrophils (%) (Auto) 52.9 37.0-80.0 % Lymphocytes (%) (Auto) 37.3 10.0-50.0 % Monocytes (%) (Auto) 8.6 0.0-12.0 % Eosinophils (%) (Auto) 0.8 0.0-7.0 % Basophils (%) (Auto) 0.4 0.0-2.0 % Neutrophils # (Auto) 5.1 1.6-8.6 10 ^3/uL Lymphocytes # (Auto) 3.6 0.4-5.4 10 ^3/uL Monocytes # (Auto) 0.8 0-1.3 10 ^3/uL Eosinophils # (Auto) 0.1 0-0.8 10 ^3/uL Basophils # (Auto) 0 0-0.2 10 ^3/uL Nucleated Red Blood Cells 0.2 % Sodium Level 139 136-145 mmol/L Potassium Level 4.0 3.5-5.1 mmol/L Chloride Level 104 98-107 mmol/L Carbon Dioxide Level 21 20-31 mmol/L Anion Gap 14 5-15 Blood Urea Nitrogen 8 L 9-23 mg/dL Creatinine 1.22 0.700-1.30 mg/dL Glomerular Filtration Rate Calc 61 >90 mL/min BUN/Creatinine Ratio 6.6 L 10.0-20.0 Serum Glucose 120 H 74-106 mg/dL Calcium Level 9.8 8.7-10.4 mg/dL Total Bilirubin 0.7 0.2-1.0 mg/dL Aspartate Amino Transferase (AST) 18 13-40 U/L Alanine Aminotransferase (ALT) 11 7-40 U/L Alkaline Phosphatase 56 46-116 U/L Total Protein 7.0 5.7-8.2 g/dL Albumin 4.5 3.2-4.8 g/dL Assessment/Plan Assessment/Plan acute hypoxic resp failure likely from copd vs pna found on cxr ordered o2 to keep sats >92% cont levaquin ordered duoneb atc for now acute break through seizure ordered keppra for now seizure precautions etoh level fu results ativan prn seizure acute community acquired bacterial pna found on cxr ordered levaquin for now o2 prn to keep sats >92% etoh abuse last drink 2 days ago etoh level monitor for withdrawal banana bag Librium chronic problems seizures etoh abuse dementia htn hld copd duoneb prn fen/ppx diet when more alert ivf protonix scd no heparin for now plan admit to medicine Plan discussed with: Patient Date of Service: Nov 25, 2024 Billing Provider: HAMMAD MONTEIRO DNP Common Visit Codes: 21257-[id number] INP/OBS CARE (HIGH) HAMMAD MONTEIRO DNP Nov 25, 2024 13:44
[2024-11-25 14:44] LABS: Urine Bacteria None Seen /hpf (None Seen)
[2024-11-25 14:58] LABS: Urine Blood Negative /uL (Negative); Urine Clarity Clear (Clear); Urine Color Light-Yellow (Yellow); Urine Protein, UAD Negative (Negative); Urine Specific Gravity 1.011 (1.001-1.035); Urine Squamous Epithelial Cell None Seen /hpf (<5); Urine Urobilinogen Normal (Negative); Urine WBC 1 /HPF (0-3)
[2024-11-25 15:06] LABS: Cannabinoid Screen, Urine Pos (NEGATIVE)
[2024-11-25 15:08] LABS: Amphetamine Screen, Urine Neg (NEGATIVE); Barbiturate Scree,Urine Neg (NEGATIVE); Benzodiazephine Screen, Urine Neg (NEGATIVE); Cocaine Screen, Urine Neg (NEGATIVE); Opiate Scree,Urine Neg (NEGATIVE); Phencyclidine Screen, Urine Neg (NEGATIVE)
[2024-11-25] MEDS ORDERED: DOCUSATE SOD 100 MG CAP PO PRN (15:30)
[2024-11-25] MEDS ORDERED: MORPHINE SULFATE INJ 2 MG/ml SYRG IV PRN (15:30)
[2024-11-25] MEDS ORDERED: ONDANSETRON HCL 4 MG/2 ML VIAL IV PRN (15:30)
[2024-11-25] MEDS ORDERED: NITROGLYCERIN 0.4 MG SL TAB SL PRN (15:30)
[2024-11-25] MEDS: SODIUM CHLORIDE 0.9% 1,000 ML IV SCH (16:20)
[2024-11-25] MEDS: levoFLOXacin 500MG 100 ML IV ONE (16:20)
[2024-11-25] MEDS: chlordiazePOXIDE HCL 25 MG CAP PO SCH (16:30)
[2024-11-25] MEDS: TAMSULOSIN HYDROCHLORIDE 0.4 MG CAP PO SCH (18:07)
--- NOTE | 2024-11-25 18:57 | ECG ---
[facility] Test Date: 2024-11-25 Test Time: 08:12:44 Pat Name: YANDEL CHANDLER Department: ED Room: 0286 Gender: M [employer] Sales Representative: clare : 1945 Requested By: AMANDA NOVAK Order Number: [id number] Reading MD: Wenceslao Lopez Measurements Intervals [place] Rate: 75 P: 66 LA: 109 QRS: -79 QRSD: 97 T: 58 QT: 406 QTc: 454 Interpretive Statements Sinus rhythm Short LA interval Probable left atrial enlargement Left anterior fascicular block Abnormal R-wave progression, early transition Electronically Signed On 11-29-2024 21:56:56 PDT by Wenceslao Lopez Please click the below link to view image of tracing.
[2024-11-25 21:00] VITALS: BP 126/59; PULSE 74; TEMP 98.6; O2SAT 95
[2024-11-25] MEDS: APIXABAN 5 MG TAB PO SCH (21:38)
[2024-11-25] MEDS: levETIRAcetam 1000 mg/100ml 100 ML IV SCH (21:44)
[2024-11-25 23:00] VITALS: BP 145/80; PULSE 76; RESP 17; TEMP 98.6; O2SAT 94
[2024-11-25 23:15] VITALS: O2SAT 99
[2024-11-26] VITALS (8 sets, daily range): BP systolic 103–146; BP diastolic 70–90; PULSE 71–84; RESP 16–18; TEMP 97.3–98.1; O2SAT 96–99
[2024-11-26] MEDS ORDERED: LEVE100020 PO (01:02)
[2024-11-26] MEDS ORDERED: MET25T PO (01:02)
[2024-11-26] MEDS: FINASTERIDE 5 MG TAB PO SCH (09:29)
[2024-11-26] MEDS: chlordiazePOXIDE HCL 25 MG CAP PO SCH (09:30)
[2024-11-26] MEDS: levoFLOXacin 500MG 100 ML IV SCH (09:30)
[2024-11-26 10:16] LABS: Basophils # (auto) 0 10 ^3/uL (0-0.2); Basophils % (auto) 0.5 % (0.0-2.0); Eosinophils # (auto) 0.1 10 ^3/uL (0-0.8); Eosinophils % (auto) 1.1 % (0.0-7.0); Hematocrit 43.9 % (41.0-53.0); Hemoglobin 14.6 g/dL (13.5-17.5); Lymphocytes # (auto) 2.9 10 ^3/uL (0.4-5.4); Lymphocytes % (auto) 33.7 % (10.0-50.0); Mean Corpuscular Hemoglobin 28.3 pg (28.0-32.0); Mean Corpuscular Hgb Conc. 33.2 g/dL (32.0-36.0); Mean Corpuscular Volume 85.4 fL (80.0-100.0); Monocytes # (auto) 0.8 10 ^3/uL (0-1.3); Neutrophils # (auto) 4.9 10 ^3/uL (1.6-8.6); Neutrophils % (auto) 55.7 % (37.0-80.0); Nucleated Red Blood Cells % 0.1 %; Platelet Count (auto) 122 10^3/uL (140-450); Red Blood Cells 5.14 10^6/uL (4.5-5.90); Red Cell Distribution Width 16.4 % (11.8-14.3); White Blood Cell 8.7 10^3/uL (4.4-10.8)
[2024-11-26 10:36] LABS: Alkaline Phosphatase 49 U/L (46-116); Bilirubin, Total 0.6 mg/dL (0.2-1.0); Glucose 86 mg/dL (74-106); Total Protein 6.2 g/dL (5.7-8.2)
[2024-11-26 10:58] LABS: Alanine Aminotransferase < 9 U/L (7-40); Aspartate Aminotransferase < 8 U/L (13-40); Chloride 106 mmol/L (98-107); Potassium 3.9 mmol/L (3.5-5.1); Sodium 138 mmol/L (136-145)
[2024-11-26 10:59] LABS: Anion Gap 10 (5-15); Calcium 9.3 mg/dL (8.7-10.4); Carbon Dioxide 22 mmol/L (20-31)
[2024-11-26 11:22] LABS: BUN/Creatinine Ratio 8.5 (10.0-20.0); Blood Urea Nitrogen 9 mg/dL (9-23)
--- NOTE | 2024-11-26 15:05 | DVHPN2 ---
Subjective The patient is seen and examined at bedside. Still very confused and postictal Reviewed: Care Plan, H&P, Labs, Medications, Previous Orders, Radiology Changes from previous H/P or p: No Changes Eyes: No Pain, No Vision change, No Conjunctivae inflammation, No Eyelid inflammation, No Other, No Redness ENT: No Ear pain, No Ear discharge, No Nose pain, No Nose discharge, No Nose congestion, No Mouth pain, No Mouth swelling, No Throat pain, No Throat swelling, No Other Cardiovascular: No Chest Pain, No Palpitations, No Orthopnea, No Paroxysmal Noc. Dyspnea, No Edema, No Lt Headedness, No Other Respiratory: No Cough, No Dry, No Shortness of breath, No SOB with excertion, No Wheezing, No Hemoptysis, No Pleuritic Pain, No Sputum, No Other Gastrointestinal: No Nausea, No Vomiting, No Abdominal Pain, No Diarrhea, No Constipation, No Melena, No Hematochezia, No Other Genitourinary: No Dysuria, No Frequency, No Incontinence, No Hematuria, No Retention, No Other Musculoskeletal: No other, No neck pain, No shoulder pain, No arm pain, No back pain, No hand pain, No leg pain, No foot pain Skin: No Rash, No Lesions, No Jaundice, No Bruising, No Other Objective Vitals Vital Signs Date Time Temp Pulse Resp B/P (MAP) Pulse Ox O2 Delivery O2 Flow Rate FiO2 11/26/24 13:00 97.6 75 16 103/74 (84) 99 97.6 11/25/24 23:15 Nasal Cannula* 2 28 Intake/Output Intake and Output 11/26/24 07:00 Intake Total 1620 ml Output Total 425 ml Balance 1195 ml Intake Oral 0 ml IV Total 1620 ml Output Urine Total 425 ml General Appearance: Alert, No acute distress HEENT: Atraumatic, PERRLA, EOMI, Mucous membr. moist/pink Neck: Supple Lungs: Clear to auscultation, Normal air movement Cardiovascular: Regular rate, Normal S1, Normal S2, No murmurs, Gallops, Rubs Abdomen: Normal bowel sounds, Soft, No tenderness Neuro: Cranial nerves 3-12 NL Psych/Mental Status: Mental status NL Medications Current Medications Medications Dose Ordered Sig/Sukhwinder Route Start Time Stop Time Status Last Admin Dose Admin Apixaban 5 mg BID PO 11/25/24 22:00 11/26/24 09:29 5 MG Finasteride 5 mg DAILY PO 11/26/24 10:00 11/26/24 09:29 5 MG Tamsulosin HCl 0.4 mg QPM PO 11/25/24 18:00 11/25/24 18:07 0.4 MG Levetiracetam 100 ml @ 400 mls/hr BID IV 11/25/24 22:00 11/26/24 09:39 400 MLS/HR Sodium Chloride 1,000 ml @ 120 mls/hr Q8H20M IV 11/25/24 15:30 11/26/24 05:15 120 MLS/HR Ondansetron HCl 4 mg Q4HP PRN IV 11/25/24 15:30 Docusate Sodium 100 mg BIDPRN PRN PO 11/25/24 15:30 Morphine Sulfate 2 mg Q4HPRN PRN IV 11/25/24 15:30 Nitroglycerin 0.4 mg Q5MINP PRN SL 11/25/24 15:30 Levofloxacin/ Dextrose 100 ml @ 100 mls/hr DAILY IV 11/26/24 10:00 11/26/24 09:30 100 MLS/HR Chlordiazepoxide HCl 50 mg Q12HR PO 11/26/24 10:00 11/26/24 22:01 11/26/24 09:30 50 MG Chlordiazepoxide HCl 25 mg Q12HR PO 11/27/24 10:00 11/27/24 22:01 Chlordiazepoxide HCl 25 mg QAM PO 11/28/24 07:00 11/28/24 07:01 Laboratory Results Laboratory Tests 11/26/24 10:07 Chemistry Test 11/26/24 10:07 Albumin 4.0 g/dL (3.2-4.8) Calcium Level 9.3 mg/dL (8.7-10.4) Total Protein 6.2 g/dL (5.7-8.2) LFT Test 11/26/24 10:07 Alanine Aminotransferase (ALT) < 9 U/L (7-40) Alkaline Phosphatase 49 U/L (46-116) Aspartate Amino Transferase (AST) < 8 U/L (13-40) L Total Bilirubin 0.6 mg/dL (0.2-1.0) Urinalysis Test 11/25/24 08:06 Urine Color Light-yellow (Yellow) Urine Clarity Clear (Clear) Urine pH 5.0 (5.0-9.0) Urine Specific [place] 1.011 (1.001-1.035) Urine Protein Negative (Negative) Urine Ketones Negative (Negative) Urine Blood Negative /uL (Negative) Urine Nitrite Negative (Negative) Urine Bilirubin Negative (Negative) Urine Urobilinogen Normal mg/dL (Negative) Urine Leukocyte Esterase Negative /uL (Negative) Urine RBC <1 /hpf (0 - 3) Urine Microscopic WBC 1 /HPF (0-3) Urine Squamous Epithelial Cells None seen /hpf (<5) Urine Uric Acid Crystals Few /hpf (None Seen) Urine Bacteria None seen /hpf (None Seen) Urine Glucose Normal mg/dL (Normal) Labs and/or images reviewed: Labs reviewed by me Assessment/Plan Assessment/Plan acute hypoxic resp failure likely from copd vs pna acute break through seizure acute community acquired bacterial pna etoh abuse seizures dementia htn hld copd Continuing current management. Continuing with DuoNeb, IV antibiotic, and Keppra. Continuing to keep NPO until the patient is more alert awake. We will get swallow eval before starting on diet. Continuing with Librium. We will watch for alcohol withdrawal This medical document was created using an electronic medical record system with [employer] direct computerized dictation system. Although this document has been carefully reviewed, there may still be some phonetic and typographical errors. These areas are purely typographical due to imperfections of the software programs, and do not reflect any compromise in the patient's medical care. Plan discussed with: Patient Date of Service: Nov 26, 2024 Billing Provider: DANG GIPSON MD Common Visit Codes: [id number] INP/OBS CARE(HIGH) DANG GIPSON MD Nov 26, 2024 15:05
[2024-11-27] VITALS (7 sets, daily range): BP systolic 98–140; BP diastolic 61–82; PULSE 62–83; RESP 16–18; TEMP 97.4–98.6; O2SAT 95–99
[2024-11-27] MEDS: chlordiazePOXIDE HCL 25 MG CAP PO SCH (11:32)
--- NOTE | 2024-11-27 12:11 | DVHPN2 ---
Subjective The patient is seen and examined at bedside. The patient is more alert awake today. The patient passed swallow eval and hungry. Patient wanted to eat Reviewed: Care Plan, H&P, Labs, Medications, Previous Orders, Radiology Changes from previous H/P or p: No Changes Eyes: No Pain, No Vision change, No Conjunctivae inflammation, No Eyelid inflammation, No Other, No Redness ENT: No Ear pain, No Ear discharge, No Nose pain, No Nose discharge, No Nose congestion, No Mouth pain, No Mouth swelling, No Throat pain, No Throat swelling, No Other Cardiovascular: No Chest Pain, No Palpitations, No Orthopnea, No Paroxysmal Noc. Dyspnea, No Edema, No Lt Headedness, No Other Respiratory: No Cough, No Dry, No Shortness of breath, No SOB with excertion, No Wheezing, No Hemoptysis, No Pleuritic Pain, No Sputum, No Other Gastrointestinal: No Nausea, No Vomiting, No Abdominal Pain, No Diarrhea, No Constipation, No Melena, No Hematochezia, No Other Genitourinary: No Dysuria, No Frequency, No Incontinence, No Hematuria, No Retention, No Other Musculoskeletal: No other, No neck pain, No shoulder pain, No arm pain, No back pain, No hand pain, No leg pain, No foot pain Skin: No Rash, No Lesions, No Jaundice, No Bruising, No Other Objective Vitals Vital Signs Date Time Temp Pulse Resp B/P (MAP) Pulse Ox O2 Delivery O2 Flow Rate FiO2 11/27/24 08:39 98.6 79 16 109/76 (87) 96 98.6 11/26/24 20:00 Nasal Cannula* 2 28 Intake/Output Intake and Output 11/27/24 07:00 Intake Total 400 ml Output Total 730 ml Balance -330 ml Intake Oral 400 ml Output Urine Total 730 ml Stool Total 0 ml # Voids 4 General Appearance: Alert, Cooperative, No acute distress HEENT: Atraumatic, PERRLA, EOMI, Mucous membr. moist/pink Neck: Supple Lungs: Clear to auscultation, Normal air movement Cardiovascular: Regular rate, Normal S1, Normal S2, No murmurs, Gallops, Rubs Abdomen: Normal bowel sounds, Soft, No tenderness Neuro: Cranial nerves 3-12 NL Psych/Mental Status: Mental status NL Medications Current Medications Medications Dose Ordered Sig/Sukhwinder Route Start Time Stop Time Status Last Admin Dose Admin Apixaban 5 mg BID PO 11/25/24 22:00 11/27/24 11:32 5 MG Finasteride 5 mg DAILY PO 11/26/24 10:00 11/27/24 11:31 5 MG Tamsulosin HCl 0.4 mg QPM PO 11/25/24 18:00 11/26/24 17:24 0.4 MG Levetiracetam 100 ml @ 400 mls/hr BID IV 11/25/24 22:00 11/26/24 21:44 400 MLS/HR Sodium Chloride 1,000 ml @ 120 mls/hr Q8H20M IV 11/25/24 15:30 11/27/24 03:23 120 MLS/HR Ondansetron HCl 4 mg Q4HP PRN IV 11/25/24 15:30 Docusate Sodium 100 mg BIDPRN PRN PO 11/25/24 15:30 Morphine Sulfate 2 mg Q4HPRN PRN IV 11/25/24 15:30 Nitroglycerin 0.4 mg Q5MINP PRN SL 11/25/24 15:30 Levofloxacin/ Dextrose 100 ml @ 100 mls/hr DAILY IV 11/26/24 10:00 11/27/24 11:31 100 MLS/HR Chlordiazepoxide HCl 25 mg Q12HR PO 11/27/24 10:00 11/27/24 22:01 11/27/24 11:32 25 MG Chlordiazepoxide HCl 25 mg QAM PO 11/28/24 07:00 11/28/24 07:01 Laboratory Results Laboratory Tests 11/26/24 10:07 Urinalysis Test 11/25/24 08:06 Urine Color Light-yellow (Yellow) Urine Clarity Clear (Clear) Urine pH 5.0 (5.0-9.0) Urine Specific [place] 1.011 (1.001-1.035) Urine Protein Negative (Negative) Urine Ketones Negative (Negative) Urine Blood Negative /uL (Negative) Urine Nitrite Negative (Negative) Urine Bilirubin Negative (Negative) Urine Urobilinogen Normal mg/dL (Negative) Urine Leukocyte Esterase Negative /uL (Negative) Urine RBC <1 /hpf (0 - 3) Urine Microscopic WBC 1 /HPF (0-3) Urine Squamous Epithelial Cells None seen /hpf (<5) Urine Uric Acid Crystals Few /hpf (None Seen) Urine Bacteria None seen /hpf (None Seen) Urine Glucose Normal mg/dL (Normal) Microbiology Microbiology Date/Time Source Procedure Growth Status 11/26/24 01:31 Nose MRSA Screen - Final Complete Labs and/or images reviewed: Labs reviewed by me Assessment/Plan Assessment/Plan acute hypoxic resp failure likely from copd vs pna acute break through seizure acute community acquired bacterial pna etoh abuse seizures dementia htn hld copd Continuing current management. Continuing with DuoNeb, IV antibiotic, and Keppra. Continuing to keep NPO until the patient is more alert awake. We will get swallow eval before starting on diet. Continuing with Librium. We will watch for alcohol withdrawal Per RN the sister called and stated that the patient had cancer to the bone was diagnosis in [facility] at [place] however the patient was sent home without any further workup. I am going to get the medical records from [facility] to see what is going on with that. I asked the patient about it and he said he did not know. Patient said he did not have any cancer. We will put in a neurology consult for seizure. This medical document was created using an electronic medical record system with [employer] direct computerized dictation system. Although this document has been carefully reviewed, there may still be some phonetic and typographical errors. These areas are purely typographical due to imperfections of the software programs, and do not reflect any compromise in the patient's medical care. Plan discussed with: Patient My Orders Orders - DANG GIPSON MD Procedure Category Date Status Time * Cod Clerk CONS 11/27/24 Transmitted Consult Soft Diet DIET 11/27/24 Transmitted Lunch * Neurology Consult CONS 11/27/24 Transmitted 11:46 Communication Order ORDERS 11/27/24 Transmitted 11:46 Date of Service: Nov 27, 2024 Billing Provider: DANG GIPSON MD Common Visit Codes: [id number] INP/OBS CARE(HIGH) DANG GIPSON MD Nov 27, 2024 12:11
--- NOTE | 2024-11-27 23:24 | DVHINCON2 ---
Date of service: Nov 27, 2024 Referring Physician Reason for Consultation Seizures History of Present Illness Mr. Sheffield is a 79 years old gentleman with a history of diabetes, the patient was brought to the hospital on 11/25/24 with a chief complaint of seizure activity. At that time, he was awake, oriented to person, place, he knows year and the month, good social skills, but he was not a good historian. He tells me had 2-3 seizure before he came to the hospital this time, last seizure attack was about one month ago, he does not remember how mentally he had in 2023 I saw him in [facility] on 11/14/2021, 02/11/2022, 02/15/23, 09/06/2023, 10/19/23, 06/08/2024 for seizure. The summary is his seizure history Seizure, Grand mal Onset: 2010 - 2021 Time of the last attack: 09/2023 Frequency: One day per month he was seizure activity Possible cause: According to previous consultation dated 02/11/2022, the patient was a heavy, mostly daily alcohol drinker since early 1999 or earlier. On 06/02/2010, the family reported the patient had quit heavy alcohol, he only drank alcohol once a while No head trauma/intracranial infection Symptoms: Episodic event where he has tonic-clonic activity with unconsciousness and company amnesia afterwards, remember the typically no biting According my previous documentation, he had no symptoms olfactory/gustatory hallucination. No spells of confusion or ALCO. No other symptoms suggestive of partial seizure Aura: None Triggers: Possibly sleep deprivation, alcohol withdrawal Previous evaluation: Saw PCP, was in the [facility]. EEG, 02/05/22: Normal 1 hour EEG. Current treatment: Keppra 1000 mg b.i.d. On 06/08/2024, his [id number]-weu reports the patient has mild memory difficult y, with the short-term memory more affected since , he remembered all his family member, he could findi way home in his neighborhood, but he was not able to live alone or was dependent on the family for daily living Urinalysis, 11/25/2024: Unremarkable UDS, 11/25/2024: Cannabinoids WBC/Hb/PLT/MCV, 06/08/2024: 15/13.8/141/85.9, 11/26/2024: 8.02/1400 6/122/85.4 CMP, 06/07/2024: Unremarkable 11/26/24: Unremarkable TG/CHO L/LDL/HDL, 05/2021: 98/155/76/71, 01/2022: 37/126/54/62, 01/2023: 74/126/63/52 Vitamin B12, 09/2023: 536 Folic acid, 09/2023: 24 TSH, 09/2023: 1.45 CT head, 11/14/2021:The study is slightly limited due to motion artifacts. 1. No intracranial hemorrhage, mass effect or midline shift. 2. Mild chronic microangiopathic ischemic change. 3. Intracranial atherosclerosis. 4. Left parietal scalp hematoma with no underlying calvarial fracture CT head, 10/18/2023: 1. No acute intracranial abnormality. 2. Mild cerebral volume loss and mild chronic microvascular ischemic change CT head, 06/07/2024: No evidence of acute intracranial abnormality. Mucoperiosteal thickening of the bilateral inferior frontal sinuses and bilatera l ethmoid air cells with with mucous retention cyst within the left maxillary sinus. Small left parietal scalp hematoma MRI head, 02/15/2023:Limited examination secondary to extensive patient motion artifact. No evidence of acute infarction, intracranial hemorrhage, mass effect or hydrocephalus. There is nonspecific periventricular and subcortical T2/FLAIR hyperintense white matter changes. Differential includes: Demyelinating disease, chronic microangiopathic change, residua of migraine headaches or other p ostinflammatory residua Past Medical History Hypertension, dyslipidemia, COPD, PE (01/2022) Past Surgical History None Family History: Diabetes mellitus Hypercholesterolemia Family History Diabetes, dyslipidemia. No family history of dementia Social History He smokes, uses marijuana, old heavy alcohol, no drug abuse Allergies: Coded Allergies: NO KNOWN ALLERGIES (Unverified , 02/15/23) Home Meds Active Scripts Amoxicillin & Pot Clavulanate (Augmentin) 500 Mg Tab, 1 TAB PO BID, #20 TAB Prov:YURI LIANG [employer] MACHINE OPERATOR 06/12/24 Amoxicillin & Pot Clavulanate (Augmentin) 500 Mg Tab, 1 TAB PO BID for 5 Days, #10 TAB Prov:SALSHIV PADGETTOLPH [employer]ING MACHINE OPERATOR 06/12/24 Levetiracetam (Keppra) 1,000 Mg Tab, 1 TAB PO BID, #180 TAB 3 Refills Prov:NICOLAS HUNT MD 10/21/23 Polyethylene Glycol 3350 (Miralax) 17 Gm Pow, 17 GM PO DAILY for 5 Days, #10 POW Prov:YURI LIANG [employer]ING MACHINE OPERATOR 05/26/23 Cefdinir (Cefdinir) 300 Mg Cap, 1 CAP PO BID for 5 Days, #10 CAP Prov:YURI LIANG [employer]AND[employer]MING MACHINE OPERATOR 05/26/23 Tamsulosin Hcl (Flomax) 0.4 Mg Cap, 0.4 MG PO QPM for 60 Days, #60 CAP Prov:YURI LIANG [employer]AND[employer]ING MACHINE OPERATOR 05/26/23 Levetiracetam (Keppra) 1,000 Mg Tab, 1 TAB PO BID, #60 TAB 5 Refills Prov:SOUMYA PAYNE MD 02/17/23 Albuterol Sulfate (Proair Respiclick) 108 Mcg/Act Aer, 108 MCG IN Q4HPRN PRN for 90 Days, #1 AER 3 Refills Prov:MIREILLE TOSCANO MD 02/19/22 Apixaban Base (ELIQUIS) 5 Mg Tab, 5 MG PO BID for 180 Days, #360 TAB Prov:MIREILLE TOSCANO MD 02/19/22 Reported Medications Metoprolol Tartrate (Lopressor) 25 Mg Tb, 0.5 TAB PO BID 11/26/24 Levetiracetam (Levetiracetam) 1,000 Mg Tab, 1 TAB PO BID 11/26/24 Lactulose (Lactulose) 10 Gm/15 Ml Jania, PO 10/20/23 Pantoprazole Sodium Sesquihydr (Pantoprazole Sodium) 40 Mg Tab, 1 TAB PO DAILY 10/20/23 Finasteride (Finasteride) 5 Mg Tab, 1 TAB PO DAILY 10/20/23 Pantoprazole Sodium Sesquihydr (Protonix) 40 Mg Tab, 40 MG PO DAILY, #30 TAB 02/14/22 Magnesium Oxide (MAGNESIUM OXIDE) 400 Mg Tab, 1 TAB PO BID, #60 TAB 5 Refills 02/14/22 Lactulose (Lactulose) 10 Gm/15 Ml Jania, 15 ML PO BID, ML 09/22/21 Polyethylene Glycol (MIRALAX 17GM PWD) 17 Gm Pw, 17 GM PO BID, POW 09/22/21 Current Medications Current Medications Medications (Trade) Dose Ordered Sig/Sukhwinder Route PRN Reason Start Time Stop Time Status Last Admin Chlordiazepoxide HCl (Librium Capsule) 25 mg Q12HR PO 11/27/24 10:00 11/27/24 22:01 DC 11/27/24 22:07 Chlordiazepoxide HCl (Librium Capsule) 25 mg QAM PO 11/28/24 07:00 11/28/24 07:01 Review of Systems As above, the other systems are negative Vital Signs Vital Signs Date Time Temp Pulse Resp B/P (MAP) Pulse Ox O2 Delivery O2 Flow Rate FiO2 11/27/24 20:54 98.2 62 16 116/76 (89) 99 98.2 11/27/24 08:00 Nasal Cannula* 2 28 Physical Exam GENERAL EXAM: General: the patient is well developed and nourished. No acute distress. HEENT: Normocephalic, neck is supple, no carotid bruits. No mass. RESPIRATORY: Normal respiratory effort with symmetrical lung expansion. Lungs clear to auscultation. CARDIOVASCULAR: Regular rate and rhythm with no murmurs. S1, S2. ABDOMEN: Soft, nontender, normal bowel sound NEUROLOGICAL: MENTAL STATUS: Awake and alert. Oriented to person, place, time SPEECH, LANGUAGE, HIGHER CORTICAL FUNCTION: no aphasia or dysathria. CRANIAL NERVES: #2: Intact visual kidd to confrontation. The optic discs were sharp. #3,4,6: Pupils are equal, round and reactive. EOMs full and conjugate. Mild bilateral gaze evoked nystagmus. #5: Facial sensation intact in all three divisions bilaterally. Mandibular strength intact. #7: Facial muscles symmetrical and strength intact. #8: Hearing grossly normal to voice. #9,10: Uvula and soft palate rise in the midline. Swallow and voice are normal. #11: Trapezius and sternomastoid strength intact bilaterally. #12: Tongue midline. No fasciculations or atrophy. SENSATION: Sensation to touch and pinprick is normal. MOTOR: Normal tone in the upper and lower extremity. Normal muscle bulk. No fasciculations. No abnormal movements or posturing. Muscle strength of the major groups in the upper extremities is 5/5. Muscle strength of the major groups in the lower extremities is 5/5. REFLEXES: Deep tendon reflexes normal and symmetrical. No pathological r eflexes. CEREBELLAR/COORDINATION: Finger to nose and heel to robles are normal bilaterally. GAIT/STATION: deferred. Labs/Diagnostic Data Labs Test 11/26/24 10:07 11/25/24 08:06 Range/Units White Blood Count 8.7 4.4-10.8 10^3/uL Red Blood Count 5.14 4.5-5.90 10^6/uL Hemoglobin 14.6 13.5-17.5 g/dL Hematocrit 43.9 41.0-53.0 % Mean Corpuscular Volume 85.4 80.0-100.0 fL Mean Corpuscular Hemoglobin 28.3 28.0-32.0 pg Mean Corpuscular Hemoglobin Concent 33.2 32.0-36.0 g/dL Red Cell Distribution Width 16.4 H 11.8-14.3 % Platelet Count 122 L 140-450 10^3/uL Mean Platelet Volume 8.6 6.9-10.8 fL Neutrophils (%) (Auto) 55.7 37.0-80.0 % Lymphocytes (%) (Auto) 33.7 10.0-50.0 % Monocytes (%) (Auto) 9.0 0.0-12.0 % Eosinophils (%) (Auto) 1.1 0.0-7.0 % Basophils (%) (Auto) 0.5 0.0-2.0 % Neutrophils # (Auto) 4.9 1.6-8.6 10 ^3/uL Lymphocytes # (Auto) 2.9 0.4-5.4 10 ^3/uL Monocytes # (Auto) 0.8 0-1.3 10 ^3/uL Eosinophils # (Auto) 0.1 0-0.8 10 ^3/uL Basophils # (Auto) 0 0-0.2 10 ^3/uL Nucleated Red Blood Cells 0.1 % Sodium Level 138 136-145 mmol/L Potassium Level 3.9 3.5-5.1 mmol/L Chloride Level 106 98-107 mmol/L Carbon Dioxide Level 22 20-31 mmol/L Anion Gap 10 5-15 Blood Urea Nitrogen 9 9-23 mg/dL Creatinine 1.06 0.700-1.30 mg/dL Glomerular Filtration Rate Calc 72 >90 mL/min BUN/Creatinine Ratio 8.5 L 10.0-20.0 Serum Glucose 86 74-106 mg/dL Calcium Level 9.3 8.7-10.4 mg/dL Total Bilirubin 0.6 0.2-1.0 mg/dL Aspartate Amino Transferase (AST) < 8 L 13-40 U/L Alanine Aminotransferase (ALT) < 9 7-40 U/L Alkaline Phosphatase 49 46-116 U/L Total Protein 6.2 5.7-8.2 g/dL Albumin 4.0 3.2-4.8 g/dL Urine Color Light-yellow Yellow Urine Clarity Clear Clear Urine pH 5.0 5.0-9.0 Urine Specific [place] 1.011 1.001-1.035 Urine Protein Negative Negative Urine Ketones Negative Negative Urine Blood Negative Negative /uL Urine Nitrite Negative Negative Urine Bilirubin Negative Negative Urine Urobilinogen Normal Negative mg/dL Urine Leukocyte Esterase Negative Negative /uL Urine RBC <1 0 - 3 /hpf Urine Microscopic WBC 1 0-3 /HPF Urine Squamous Epithelial Cells None seen <5 /hpf Urine Uric Acid Crystals Few None Seen /hpf Urine Bacteria None seen None Seen /hpf Urine Glucose Normal Normal mg/dL Urine Opiates Screen Neg NEGATIVE Urine Fentanyl Screen Neg NEGATIVE Urine Barbiturates Screen Neg NEGATIVE Urine Phencyclidine Screen Neg NEGATIVE Urine Amphetamines Screen Neg NEGATIVE Urine Benzodiazepines Screen Neg NEGATIVE Urine Cocaine Screen Neg NEGATIVE Urine Cannabinoids Screen Pos NEGATIVE Microbiology Date/Time Source Procedure Growth Status 11/26/24 01:31 Nose MRSA Screen - Final Complete Assessment Status epileptics Grand mal seizures History of alcoholism Cognitive dysfunction Alcohol-related Alzheimer's disease He does not drive Plan/Recommendation Monitoring Supportive treatment Telemetry EEG IV antibiotics Keppra 1000 mg twice daily Ativan for seizure breakthrough Vitamin B1 supplementation Folic acid supplementation Eliquis 5 mg b.i.d., GI prophylaxis Up to chair Physical therapy Further address cognitive dysfunction later Progress: Poor This medical document was created using an electronic medical record system with [employer] dictation system. Although this document has been carefully reviewed, there may still be some phonetic and typographical errors. These areas are purely typographical due to imperfections of the software programs, and do not reflect any compromise in the patient's medical care. Plan discussed with: Other JOAN CHRISTOPHER MD Nov 27, 2024 23:24
[2024-11-27] MEDS: FOLIC ACID 1 MG in D5W 5% 50 ML INJ ONE (23:45)
[2024-11-27] MEDS ORDERED: LORazepam 2MG/ML-1ML VIAL IV PRN (23:45)
[2024-11-28 00:06] VITALS: BP 104/76; PULSE 93; RESP 17; TEMP 98.2; O2SAT 94
[2024-11-28] MEDS: THIAMINE 100mg/ml INJ (200mg/2ml VIAL) IM ONE (02:28)
[2024-11-28 06:14] LABS: Basophils # (auto) 0 10 ^3/uL (0-0.2); Basophils % (auto) 0.3 % (0.0-2.0); Eosinophils # (auto) 0.1 10 ^3/uL (0-0.8); Eosinophils % (auto) 1.3 % (0.0-7.0); Hematocrit 41.7 % (41.0-53.0); Hemoglobin 14.1 g/dL (13.5-17.5); Lymphocytes # (auto) 2.5 10 ^3/uL (0.4-5.4); Lymphocytes % (auto) 27.2 % (10.0-50.0); Mean Corpuscular Hemoglobin 28.8 pg (28.0-32.0); Mean Corpuscular Hgb Conc. 33.7 g/dL (32.0-36.0); Mean Corpuscular Volume 85.5 fL (80.0-100.0); Monocytes # (auto) 1.2 10 ^3/uL (0-1.3); Neutrophils # (auto) 5.3 10 ^3/uL (1.6-8.6); Neutrophils % (auto) 58.2 % (37.0-80.0); Nucleated Red Blood Cells % 0.1 %; Platelet Count (auto) 109 10^3/uL (140-450); Red Blood Cells 4.87 10^6/uL (4.5-5.90)
[2024-11-28] MEDS: chlordiazePOXIDE HCL 25 MG CAP PO SCH (06:16)
[2024-11-28 06:24] LABS: Potassium 4.3 mmol/L (3.5-5.1); Sodium 140 mmol/L (136-145)
[2024-11-28 06:25] LABS: Anion Gap 7 (5-15); Calcium 9.1 mg/dL (8.7-10.4); Carbon Dioxide 23 mmol/L (20-31)
[2024-11-28 06:26] LABS: Chloride 110 mmol/L (98-107)
[2024-11-28 06:30] LABS: BUN/Creatinine Ratio 11.9 (10.0-20.0); Blood Urea Nitrogen 12 mg/dL (9-23); Glucose 104 mg/dL (74-106)
[2024-11-28 09:00] VITALS: BP 126/72; PULSE 84; RESP 17; TEMP 78; TEMP 97.3; O2SAT 93
[2024-11-28] MEDS ORDERED: FOLIC ACID 1 MG in D5W 5% 50 ML INJ SCH (10:00)
[2024-11-28] MEDS ORDERED: THIAMINE 100mg/ml INJ (200mg/2ml VIAL) IM SCH (10:00)
[2024-11-28 13:00] VITALS: BP 122/78; PULSE 99; RESP 18; TEMP 98.5; O2SAT 98
--- NOTE | 2024-11-28 15:48 | DVHPN2 ---
Progress Note - Dictate Date Seen: Nov 28, 2024 Medical Necessity Reason Pt with a Central, PICC or Fol: No Subjective Mr. Sheffield is a 79 years old gentleman with a history of diabetes, the patient was brought to the hospital on 11/25/24 with a chief complaint of seizure activity. I saw him in [facility] on 11/14/2021, 02/11/2022, 02/15/23, 09/06/2023, 10/19/23, 06/08/2024 for seizure. I have seen and examined the patient, I have discussed with his nurse, the patient was doing fine, awake, oriented to person, place, he knows year and the month, but is a poor historian I have talked to his [id number] at [phone], she was late when she returned home on 11/25/2024, the patient was confused/disoriented, which is typically seen after he has seizure activity and the decided to bring him to medical attention, family insisted the patient was be brain to [facility] because the had good experience with them but not with us, however because of low oxygen, the patient was brought to us His [id number] mentioned in the patient had seizure on 10/02/2024, 06/2024. He takes Keppra 1000 mg b.i.d. at home. The patient had run out of all his medication, including Keppra for 2-3 days before he was brought to the [facility] [id number] also request for workup in the hospital because the patient was said to have spine tumor recently when he was in [facility] and he was received biopsy here, his family doctor is working on this issue and The patient has quit alcohol Urinalysis, 11/25/2024: Unremarkable UDS, 11/25/2024: Cannabinoids WBC/Hb/PLT/MCV, 06/08/2024: 15/13.8/141/85.9, 11/26/2024: 8.7/14.6/122/85.4 CMP, 06/07/2024: Unremarkable 11/26/24: Unremarkable TG/CHO L/LDL/HDL, 05/2021: 98/155/76/71, 01/2022: 37/126/54/62, 01/2023: 74/126/63/52 Vitamin B12, 09/2023: 536 Folic acid, 09/2023: 24 TSH, 09/2023: 1.45 CT head, 11/14/2021:The study is slightly limited due to motion artifacts. 1. No intracranial hemorrhage, mass effect or midline shift. 2. Mild chronic microangiopathic ischemic change. 3. Intracranial atherosclerosis. 4. Left parietal scalp hematoma with no underlying calvarial fracture CT head, 10/18/2023: 1. No acute intracranial abnormality. 2. Mild cerebral volume loss and mild chronic microvascular ischemic change CT head, 06/07/2024: No evidence of acute intracranial abnormality. Mucoperiosteal thickening of the bilateral inferior frontal sinuses and bilateral ethmoid air cells with with mucous retention cyst within the left maxillary sinus. Small left parietal scalp hematoma MRI head, 02/15/2023:Limited examination secondary to extensive patient motion artifact. No evidence of acute infarction, intracranial hemorrhage, mass effect or hydrocephalus. There is nonspecific periventricular and subcortical T2/FLAIR hyperintense white matter changes. Differential includes: Demyelinating disease, chronic microangiopathic change, residua of migraine headaches or other postinflammatory residua vital signs Vital Sign Date Time Temp Pulse Resp B/P (MAP) Pulse Ox O2 Delivery O2 Flow Rate FiO2 11/28/24 13:00 98.5 99 18 122/78 (93) 98 98.5 11/28/24 08:00 Nasal Cannula* 2 28 Total Intake and Output 11/27/24 11/27/24 11/28/24 15:00 23:00 07:00 Intake Total 900 ml 540 ml 400 ml Output Total 850 ml 1280 ml Balance 900 ml -310 ml -880 ml medications Current Medications Medications Dose Ordered Sig/Sukhwinder Route Start Time Stop Time Status Last Admin Dose Admin Apixaban 5 mg BID PO 11/25/24 22:00 11/28/24 09:25 5 MG Finasteride 5 mg DAILY PO 11/26/24 10:00 11/28/24 09:25 5 MG Tamsulosin HCl 0.4 mg QPM PO 11/25/24 18:00 11/27/24 17:30 0.4 MG Levetiracetam 100 ml @ 400 mls/hr BID IV 11/25/24 22:00 11/28/24 09:17 400 MLS/HR Sodium Chloride 1,000 ml @ 120 mls/hr Q8H20M IV 11/25/24 15:30 11/28/24 06:21 120 MLS/HR Ondansetron HCl 4 mg Q4HP PRN IV 11/25/24 15:30 Docusate Sodium 100 mg BIDPRN PRN PO 11/25/24 15:30 Morphine Sulfate 2 mg Q4HPRN PRN IV 11/25/24 15:30 Nitroglycerin 0.4 mg Q5MINP PRN SL 11/25/24 15:30 Levofloxacin/ Dextrose 100 ml @ 100 mls/hr DAILY IV 11/26/24 10:00 11/28/24 10:00 100 MLS/HR Lorazepam 1 mg Q5MINP PRN IV 11/27/24 23:45 Thiamine HCl 100 mg DAILY PO 11/29/24 10:00 Folic Acid 1 mg DAILY PO 11/29/24 10:00 objective General: the patient is well developed and nourished. No acute distress. MENTAL STATUS: Subjective SPEECH, LANGUAGE, HIGHER CORTICAL FUNCTION: no aphasia or dysathria. CRANIAL NERVES: Pupils are equal, round and reactive. EOMs full and conjugate. Mild bilateral gaze evoked nystagmus. Facial sensation intact in all three divisions bilaterally. Mandibular strength intact. Facial muscles symmetrical and strength intact. SENSATION: Sensation to touch and pinprick is normal. MOTOR: Normal tone in the upper and lower extremity. Normal muscle bulk. No fasciculations. No abnormal movements or posturing. Muscle strength of the major groups in the extremities is 5/5. REFLEXES: Deep tendon reflexes normal and symmetrical. No pathological reflexes. CEREBELLAR/COORDINATION: Finger to nose and heel to robles are normal bilaterally. GAIT/STATION: deferred. laboratory and microbiology Laboratory Tests 11/28/24 05:26 Test 11/28/24 05:26 Range/Units Serum Glucose 104 74-106 mg/dL Problem List Status epileptics Grand mal seizures History of alcoholism Cognitive dysfunction Alcohol-related Alzheimer's disease He does not drive Assessment/Plan Monitoring Supportive treatment Telemetry EEG MRI head IV antibiotics Keppra 1000 mg twice daily Ativan for seizure breakthrough Vitamin B1 supplementation Folic acid supplementation Eliquis 5 mg b.i.d., GI prophylaxis Up to chair Physical therapy Further address cognitive dysfunction later This medical document was created using an electronic medical record system with [employer] computerized dictation system. Although this document has been carefully reviewed, there may still be some phonetic and typographical errors. These areas are purely typographical due to imperfections of the software programs, and do not reflect any compromise in the patient's medical care. Prognosis poor Dietary Evaluation Review Comments: 1) Cardiac diet 2) Continue current plan of care Expected Outcomes/Goals: Pt will meet >75% estimated needs Fu 5-7 days Plan discussed with: Daughter, Other Total Time (mins): 40 JOAN CHRISTOPHER MD Nov 28, 2024 15:48
[2024-11-28 17:00] VITALS: BP 121/86; PULSE 100; RESP 18; TEMP 97.7; O2SAT 94
[2024-11-28] MEDS ORDERED: LORazepam 2MG/ML-1ML VIAL IV PRN (17:45)
[2024-11-28 20:00] VITALS: PULSE 86; RESP 19; O2SAT 99
--- NOTE | 2024-11-28 20:17 | DVHPN2 ---
Reviewed: Care Plan, H&P, Labs, Medications, Previous Orders, Radiology Changes from previous H/P or p: No Changes General: Per HPI Eyes: No Pain, No Vision change, No Conjunctivae inflammation, No Eyelid inflammation, No Other, No Redness ENT: No Ear pain, No Ear discharge, No Nose pain, No Nose discharge, No Nose congestion, No Mouth pain, No Mouth swelling, No Throat pain, No Throat swelling, No Other Cardiovascular: No Chest Pain, No Palpitations, No Orthopnea, No Paroxysmal Noc. Dyspnea, No Edema, No Lt Headedness, No Other Respiratory: No Cough, No Dry, No Shortness of breath, No SOB with excertion, No Wheezing, No Hemoptysis, No Pleuritic Pain, No Sputum, No Other Gastrointestinal: No Nausea, No Vomiting, No Abdominal Pain, No Diarrhea, No Constipation, No Melena, No Hematochezia, No Other Genitourinary: No Dysuria, No Frequency, No Incontinence, No Hematuria, No Retention, No Other Musculoskeletal: No other, No neck pain, No shoulder pain, No arm pain, No back pain, No hand pain, No leg pain, No foot pain Skin: No Rash, No Lesions, No Jaundice, No Bruising, No Other Objective Vitals Vital Signs Date Time Temp Pulse Resp B/P (MAP) Pulse Ox O2 Delivery O2 Flow Rate FiO2 11/28/24 17:00 97.7 100 18 121/86 (98) 94 97.7 11/28/24 08:00 Nasal Cannula* 2 28 Intake/Output Intake and Output 11/28/24 07:00 Intake Total 1840 ml Output Total 2130 ml Balance -290 ml Intake Oral 940 ml IV Total 900 ml Output Urine Total 2130 ml # Voids 2 General Appearance: Alert, Cooperative, No acute distress HEENT: Atraumatic, PERRLA, EOMI, Mucous membr. moist/pink Neck: Supple Lungs: Clear to auscultation, Normal air movement Cardiovascular: Regular rate, Normal S1, Normal S2, No murmurs, Gallops, Rubs Abdomen: Normal bowel sounds, Soft, No tenderness Neuro: Cranial nerves 3-12 NL Psych/Mental Status: Mental status NL Medications Current Medications Medications Dose Ordered Sig/Sukhwinder Route Start Time Stop Time Status Last Admin Dose Admin Apixaban 5 mg BID PO 11/25/24 22:00 11/28/24 09:25 5 MG Finasteride 5 mg DAILY PO 11/26/24 10:00 11/28/24 09:25 5 MG Tamsulosin HCl 0.4 mg QPM PO 11/25/24 18:00 11/28/24 18:18 0.4 MG Levetiracetam 100 ml @ 400 mls/hr BID IV 11/25/24 22:00 11/28/24 09:17 400 MLS/HR Sodium Chloride 1,000 ml @ 120 mls/hr Q8H20M IV 11/25/24 15:30 11/28/24 20:13 120 MLS/HR Ondansetron HCl 4 mg Q4HP PRN IV 11/25/24 15:30 Docusate Sodium 100 mg BIDPRN PRN PO 11/25/24 15:30 Morphine Sulfate 2 mg Q4HPRN PRN IV 11/25/24 15:30 Nitroglycerin 0.4 mg Q5MINP PRN SL 11/25/24 15:30 Levofloxacin/ Dextrose 100 ml @ 100 mls/hr DAILY IV 11/26/24 10:00 11/28/24 10:00 100 MLS/HR Lorazepam 1 mg Q5MINP PRN IV 11/27/24 23:45 Thiamine HCl 100 mg DAILY PO 11/29/24 10:00 Folic Acid 1 mg DAILY PO 11/29/24 10:00 Lorazepam 1 mg ONCE PRN IV 11/28/24 17:45 Laboratory Results Laboratory Tests 11/28/24 05:26 Chemistry Test 11/28/24 05:26 Calcium Level 9.1 mg/dL (8.7-10.4) Urinalysis Test 11/25/24 08:06 Urine Color Light-yellow (Yellow) Urine Clarity Clear (Clear) Urine pH 5.0 (5.0-9.0) Urine Specific [place] 1.011 (1.001-1.035) Urine Protein Negative (Negative) Urine Ketones Negative (Negative) Urine Blood Negative /uL (Negative) Urine Nitrite Negative (Negative) Urine Bilirubin Negative (Negative) Urine Urobilinogen Normal mg/dL (Negative) Urine Leukocyte Esterase Negative /uL (Negative) Urine RBC <1 /hpf (0 - 3) Urine Microscopic WBC 1 /HPF (0-3) Urine Squamous Epithelial Cells None seen /hpf (<5) Urine Uric Acid Crystals Few /hpf (None Seen) Urine Bacteria None seen /hpf (None Seen) Urine Glucose Normal mg/dL (Normal) Microbiology Microbiology Date/Time Source Procedure Growth Status 11/26/24 01:31 Nose MRSA Screen - Final Complete Labs and/or images reviewed: Labs reviewed by me, Image(s) reviewed by me Assessment/Plan Assessment/Plan acute hypoxic resp failure likely from copd vs pna acute break through seizure acute community acquired bacterial pna etoh abuse seizures dementia htn hld copd continue with current care Plan discussed with: Patient Date of Service: Nov 28, 2024 Billing Provider: JACE GREGG DO Common Visit Codes: [id number] INP/OBS CARE(HIGH) JACE GREGG DO Nov 28, 2024 20:17
--- NOTE | 2024-11-28 20:35 | DVHEEG2 ---
Neurology EEG Procedural Note Procedural Note EXAM DATE: 11/28/2024 REFERRING DOCTOR: Dr. Christopher TECHNIQUE: Eighteen channels of EEG, 2 channels of EOG, and 1 channel of EKG were recorded using the International 10/20 system. CLINICAL DATA: The patient was referred for an EEG evaluation for the evidence of seizure disorder. MEDICATIONS: See chart BACKGROUND ACTIVITY: There was significant amount of environmental artifacts. While the patient was awake, the background activity was likely well regulated 9-10 Hz rhythmic waveforms, symmetrically distributed over both posterior quadrants and was reactive to external stimuli ACTIVATION: Hyperventilation: Not done Photic Stimulation: Not done Sleep: Not seen IMPRESSION: This is a normal EEG. No focal, lateralized, or epileptiform features are noted. If clinically indicated to rule out a seizure disorder, recommend repeat EEG with sleep deprivation. The EKG channel showed a regular heart rate of 78/min[place] [address] JOAN CHRISTOPHER MD Nov 28, 2024 20:35
[2024-11-28 21:00] VITALS: BP 130/83; PULSE 86; RESP 19; TEMP 98.9; O2SAT 99
[2024-11-29 01:00] VITALS: BP 112/77; PULSE 82; RESP 18; TEMP 97.5; O2SAT 98
[2024-11-29 05:00] VITALS: BP 103/58; PULSE 87; RESP 18; TEMP 98.4; O2SAT 99
--- NOTE | 2024-11-29 07:07 | DVH ---
EXAM: XR Right Elbow Complete, 3 or More Views CLINICAL INDICATION: S/P FALL TECHNIQUE: Frontal, lateral and oblique views of the right elbow. COMPARISON: None FINDINGS: BONES/JOINTS: See below. SOFT TISSUES: Soft tissue swelling without acute fracture. OTHER FINDINGS: . IMPRESSION: 1. Soft tissue swelling without acute fracture. 2. If symptoms persist, further evaluation with CT is recommended.
--- NOTE | 2024-11-29 07:32 | DVH ---
EXAM: CT Head Without Intravenous Contrast CLINICAL INDICATION: S/P Fall TECHNIQUE: Axial computed tomography images of the head/brain without intravenous contrast. This CT exam was performed using one or more of the following dose reduction techniques: automated exposure control, adjustment of the mA and/or kV according to patient size, and/or use of iterative reconstru ction technique. CONTRAST: RADIATION DOSE: CTDIvol = 53.83 mGy, DLP = 972.35 mGy-cm COMPARISON: CT HEAD WITHOUT CONTRAST on DOS: 06/07/24, CT HEAD WITHOUT CONTRAST on DOS: 05/07/24, CT H EAD WITHOUT CONTRAST on DOS: 10/18/23, CT HEAD WITHOUT CONTRAST on DOS: 09/06/23, CT HEAD WITHOUT CONTRA ST on DOS: 02/15/23 FINDINGS: BRAIN AND EXTRA-AXIAL SPACES: Areas of decreased attenuation in the deep cerebral white matter are consistent with small vessel ischemic/degenerative changes. The cerebral and cerebellar sulci are mi ldly prominent consistent with mild brain atrophy. No acute intracranial hemorrhage, midline shift o r mass effect. If symptoms persist, further evaluation with MRI is recommended. BONES/JOINTS: Unremarkable. No acute fracture. SOFT TISSUES: Unremarkable. SINUSES: Unremarkable as visualized. No acute sinusitis. MASTOID AIR CELLS: Unremarkable as visualized. No mastoid effusion. OTHER FINDINGS: . . IMPRESSION: 1. Small vessel ischemic/degenerative changes. 2. No acute intracranial hemorrhage, midline shift or mass effect. If symptoms persist, further eval uation with MRI is recommended.
[2024-11-29 08:00] VITALS: PULSE 78; RESP 17; O2SAT 98
[2024-11-29 09:00] VITALS: BP 115/81; PULSE 78; RESP 17; TEMP 97.6; O2SAT 98
[2024-11-29] MEDS: FOLIC ACID 1 MG TAB PO SCH (10:05)
[2024-11-29] MEDS: THIAMINE HCL 100 MG TAB PO SCH (10:05)
--- NOTE | 2024-11-29 12:52 | DVHDS2 ---
Discharge Summary Date of Admission Nov 25, 2024 at 15:16 Date of Discharge: Nov 29, 2024 Labs/Diagnostic Data: Laboratory Results Test 11/28/24 05:26 11/26/24 10:07 11/25/24 08:06 White Blood Count 9.0 10^3/uL (4.4-10.8) Red Blood Count 4.87 10^6/uL (4.5-5.90) Hemoglobin 14.1 g/dL (13.5-17.5) Hematocrit 41.7 % (41.0-53.0) Mean Corpuscular Volume 85.5 fL (80.0-100.0) Mean Corpuscular Hemoglobin 28.8 pg (28.0-32.0) Mean Corpuscular Hemoglobin Concent 33.7 g/dL (32.0-36.0) Red Cell Distribution Width 16.0 % (11.8-14.3) Platelet Count 109 10^3/uL (140-450) Mean Platelet Volume 8.3 fL (6.9-10.8) Neutrophils (%) (Auto) 58.2 % (37.0-80.0) Lymphocytes (%) (Auto) 27.2 % (10.0-50.0) Monocytes (%) (Auto) 13.0 % (0.0-12.0) Eosinophils (%) (Auto) 1.3 % (0.0-7.0) Basophils (%) (Auto) 0.3 % (0.0-2.0) Neutrophils # (Auto) 5.3 10 ^3/uL (1.6-8.6) Lymphocytes # (Auto) 2.5 10 ^3/uL (0.4-5.4) Monocytes # (Auto) 1.2 10 ^3/uL (0-1.3) Eosinophils # (Auto) 0.1 10 ^3/uL (0-0.8) Basophils # (Auto) 0 10 ^3/uL (0-0.2) Nucleated Red Blood Cells 0.1 % Sodium Level 140 mmol/L (136-145) Potassium Level 4.3 mmol/L (3.5-5.1) Chloride Level 110 mmol/L (98-107) Carbon Dioxide Level 23 mmol/L (20-31) Anion Gap 7 (5-15) Blood Urea Nitrogen 12 mg/dL (9-23) Creatinine 1.01 mg/dL (0.700-1.30) Glomerular Filtration Rate Calc 76 mL/min (>90) BUN/Creatinine Ratio 11.9 (10.0-20.0) Serum Glucose 104 mg/dL (74-106) Calcium Level 9.1 mg/dL (8.7-10.4) Total Bilirubin 0.6 mg/dL (0.2-1.0) Aspartate Amino Transferase (AST) < 8 U/L (13-40) Alanine Aminotransferase (ALT) < 9 U/L (7-40) Alkaline Phosphatase 49 U/L (46-116) Total Protein 6.2 g/dL (5.7-8.2) Albumin 4.0 g/dL (3.2-4.8) Urine Color Light-yellow (Yellow) Urine Clarity Clear (Clear) Urine pH 5.0 (5.0-9.0) Urine Specific [place] 1.011 (1.001-1.035) Urine Protein Negative (Negative) Urine Ketones Negative (Negative) Urine Blood Negative /uL (Negative) Urine Nitrite Negative (Negative) Urine Bilirubin Negative (Negative) Urine Urobilinogen Normal mg/dL (Negative) Urine Leukocyte Esterase Negative /uL (Negative) Urine RBC <1 /hpf (0 - 3) Urine Microscopic WBC 1 /HPF (0-3) Urine Squamous Epithelial Cells None seen /hpf (<5) Urine Uric Acid Crystals Few /hpf (None Seen) Urine Bacteria None seen /hpf (None Seen) Urine Glucose Normal mg/dL (Normal) Urine Opiates Screen Neg (NEGATIVE) Urine Fentanyl Screen Neg (NEGATIVE) Urine Barbiturates Screen Neg (NEGATIVE) Urine Phencyclidine Screen Neg (NEGATIVE) Urine Amphetamines Screen Neg (NEGATIVE) Urine Benzodiazepines Screen Neg (NEGATIVE) Urine Cocaine Screen Neg (NEGATIVE) Urine Cannabinoids Screen Pos (NEGATIVE) Other Laboratory Tests 11/28/24 05:26 Brief Hx & Hospital Course: acute hypoxic resp failure likely from copd vs pna acute break through seizure acute community acquired bacterial pna etoh abuse seizures dementia htn hld copd discharged to home with self care Condition at Discharge: Good Final Diagnosis/Problems List see above Discharge Disposition: Home Discharge Instruct/Medications Diet: Cardiac 2g Na,low cholest Activity: No Restrictions, As Tolerated Discharge Statement: "Patient was advised to return to the ER or call 911 if any headaches, dizziness, shortness of breath, chest pain, abdominal pain, bleeding, fevers, or worsening of medical condition. Patient was counseled about treatment plan, medications, possible side effects, patientverbalized understanding. All questions were answered to the best of my ability. This discharge took greater then 30 minutes in planning, reviewing documentation, counseling the patient, and discussing with other team members." ASSESSMENT ASSESSMENT Assessment Date of Service: Nov 29, 2024 Billing Provider: JACE GREGG DO Common Visit Codes: [id number] DISCH DAY >30min JACE GREGG DO Nov 29, 2024 12:52
[2024-11-29 13:00] VITALS: BP 124/80; PULSE 81; RESP 17; TEMP 97.8; O2SAT 100
[2024-11-29 13:01] VITALS: BP 115/81; PULSE 78; RESP 17; TEMP 97.6; O2SAT 98
--- NOTE | 2024-11-29 13:37 | DVH ---
PROCEDURE: MRI BRAIN HEAD WO CONTRAST INDICATION: DORIS Ly EXAM DATE: 11/29/2024 11:59 AM COMPARISON: MRI BRAIN HEAD WO CONTRAST on DOS: 02/16/23 TECHNIQUE: MRI of the brain without intravenous contrast. FINDINGS: Diffusion weighted images of the brain demonstrate no evidence of acute infarction. There is no evidence of acute intracranial hemorrhage, extra-axial collection, mass effect, midline s hift, herniation or hydrocephalus. The ventricles, sulci and cisterns appear age appropriate. Moderate changes of chronic microvascular ischemic disease. There are no signal abnormalities on the susceptibility weighted sequences. The major vascular flow voids are present. Bilateral maxillary sinus mucous retention cysts. The surrounding soft tissues and osseous structure s are unremarkable. IMPRESSION: 1. No evidence of acute infarction, intracranial hemorrhage, mass effect or hydrocephalus. Moderate c hanges of chronic microvascular ischemic disease. HS:Y
== END 2024-11-29 15:00 | disposition home or self-care (01) | DRG 100 ==
LOC: ER 08:08 → EDBD 08:08 → OVERFLOW 15:16 → WEST WING 15:20 → OVERFLOW 15:20 → WEST WING 23:33
PROVIDERS: ADMIT Internal Medicine; ATTEND Internal Medicine
DX: G40.401 Other generalized epilepsy and epileptic syndromes, not intractable, with status epilepticus (principal); J96.01 Acute respiratory failure with hypoxia; J44.0 Chronic obstructive pulmonary disease with (acute) lower respiratory infection; F02.80 Dementia in other diseases classified elsewhere, unspecified severity, without behavioral disturbance, psychotic disturbance, mood disturbance, and anxiety; G30.9 Alzheimer's disease, unspecified; E11.9 Type 2 diabetes mellitus without complications; E78.5 Hyperlipidemia, unspecified; F10.10 Alcohol abuse, uncomplicated; I10 Essential (primary) hypertension; F17.210 Nicotine dependence, cigarettes, uncomplicated; F12.90 Cannabis use, unspecified, uncomplicated; Y90.9 Presence of alcohol in blood, level not specified; Z83.3 Family history of diabetes mellitus; Z83.49 Family history of other endocrine, nutritional and metabolic diseases; Z79.2 Long term (current) use of antibiotics; Z79.899 Other long term (current) drug therapy; Z79.01 Long term (current) use of anticoagulants; Z86.711 Personal history of pulmonary embolism
CPT/HCPCS: 36415; 70450; 70551; 71045; 73070; 80048; 80053; 80307; 81001; 85025; 87081; 93005; 95819; 96365; 96375; 97110; 97116; 97163; 97530; G0378; J1956; J7060